=== PATIENT | female | born 1980 | race Caucasian/White ===

== ENCOUNTER 2018-05-09 11:21 | Emergency (ER) | payer BC, SELFPAY ==
[2018-05-09 11:22] VITALS: BP 125/84; PULSE 94; RESP 16; TEMP 36.3; O2SAT 95; BMI 45.3
[2018-05-09 13:12] VITALS: BP 127/93; PULSE 81; RESP 18; O2SAT 97
--- NOTE | 2018-05-09 13:40 | RAD_ITS ---
STUDY: X-RAY CHEST REASON FOR EXAM: Female, 37 years old. Chest palpitations. TECHNIQUE: Single AP portable view of the chest. COMPARISON: None. FINDINGS: EKG electrodes are seen. The lungs are clear and expanded. There is no demonstrated pleural abnormality. Normal size heart. Normal mediastinum and amol. Normal visualized pulmonary arteries. Normal visualized aortic arch and descending thoracic aorta. Normal visualized thoracic spine. Normal visualized ribs, clavicles, and shoulders. There is no demonstrated abnormality of the visualized soft tissue structures of the upper abdomen. RAD/Chest 1 View (Portable) IMPRESSION: Normal x-ray examination of the chest. Electronically Signed: Humberto Emerson MD at 14:12 EDT Tel [phone], Service support ,
--- NOTE | 2018-05-09 13:40 | EKG12_ITS ---
Test Reason : PALPS Blood Pressure : / mmHG Vent. Rate : 089 BPM Atrial Rate : 089 BPM P-R Int : 188 ms QRS Dur : 084 ms QT Int : 382 ms P-R-T Axes : 030 017 011 degrees QTc Int : 464 ms Normal sinus rhythm Normal ECG Confirmed by ROBERT CANCHOLA, BUZZ ([id number]), photography editor REJI ROMERO ([id number]) on 05/13/2018 2:41:10 PM Referred By: JAYCE/MARICRUZ Confirmed By:BUZZ JONES MD
[2018-05-09 13:42] VITALS: O2SAT 98
[2018-05-09 14:01] LABS: Absolute Lymphocyte Count 2.49 X10^3/ul (0.83-4.51); Basophil# 0.04 X10^3/uL; Basophil% 0.4 % (0-1); Eosinophil# 0.35 X10^3/uL; Eosinophils% 3.6 % (0-5); Hematocrit 40.3 % (37-47); Hemoglobin 13.6 g/dl (12.0-15.0); Lymphocyte # 2.49 X10^3/ul (4.0); Lymphocyte % 25.9 % (19-41); Mean Corp Hgb Conc 33.7 g/gl (32-36); Mean Platelet Vol. 10.3 fl (6.2-12.0); Monocyte# 0.71 X10^3/uL; Monocyte% 7.4 % (0-10); Neutrophil # 5.98 X10^3/uL (2.7-7.7); Neutrophil % 62.4 % (47-70); Platelet Count 268 K/mm3 (150-450); RBC Distribution Width CV 12.9 % (11.6-14.6); RBC Distribution Width SD 41.4 fl (35.1-43.9); Red Blood Count 4.53 M/mm3 (4.2-5.4); White Blood Count 9.6 K/mm3 (4.4-11.0)
[2018-05-09 14:09] LABS: Magnesium 2.2 mg/dL (1.6-2.6); POSITIVE COUNT NO; POSITIVE DIFFERENTIAL NO; POSITIVE MORPHOLOGY NO
[2018-05-09 14:12] LABS: Anion Gap 8 (5-15); BUN 14 mg/dL (7-18); BUN/Creat Ratio 18.7 RATIO (10-20); Calcium,Total 7.4 mg/dL (8.5-10.1); Chloride 102 mmol/L (98-107); Creatinine, Serum 0.75 mg/dL (0.55-1.02); EST Glomerular Filtration Rate 93 mL/min (>60); Est Glom Filt Rate - Afr Amer 112 mL/min (>60); Estimated Creatinine Clearance 88.68 ml/min; Glucose 74 mg/dL (74-106); Potassium 3.6 mmol/L (3.5-5.1); Sodium Level 138 mmol/L (136-145)
[2018-05-09 14:23] VITALS: BP 119/85; PULSE 86; RESP 22; O2SAT 96
--- NOTE | 2018-05-09 15:15 | ED.VISSUMM ---
- ER Visit Summary Date of Service: 05/09/18 Chief Complaint: Hypocalcemia History of Present Illness: The patient is a 37 F who has a history of thyroid cancer for which she received a thyroidectomy and a parathyroidectomy. Patient states she has a history of hypocalcemia. She states that today she was at work developed palpitations some chest pain. She notes some perioral paresthesias some twitching of her right eyelid and some muscle cramps in her legs and her back. She states that at the beginning of April her calcium level was 7.9. She has been hospitalized in the past for this. Physical Examination: Afebrile vital signs are stable Gen: Well-nourished well-developed Head: Normocephalic atraumatic Eyes: Perrl EOMI ENT: TMs clear no rhinorrhea moist mucous membranes Neck: Supple no lymphadenopathy no JVD nontender CVS: Regular rate rhythm no murmurs normal S1-S2 Respiratory: No distress clear to auscultation bilaterally chest nontender Abdomen: Soft nontender nondistended normal bowel sounds no masses Back: Nontender Extremity: Nontender no edema Skin: Normal color no rash Neuro: alert orientated ?3 CN II-XII intact normal strength sensation reflexes gait cerebellar Psych: Normal affect normal mood Test Results: CBC chemistry showed a calcium of 7.4 magnesium 2.2. EKG sinus at a rate of 89 it appears unchanged. Chest x-ray per protocol was negative. Emergency Department Course and Treatment: Patient received a gram of calcium chloride mixed by pharmacy and diluted and given through a AC vein. 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 Impression: 1. Hypocalcemia This note was generated with [employer] dictation software. It may contain incorrect words, spelling, and punctuation that were not noted in review of the chart prior to signing ED Disposition - Plan for ED Patient: Disposition: Home or Assisted Living Chief Complaint: Abn Labs Instructions: ED Hypocalcemia Referrals: Sonya Alcala NP-C [Nurse Practitioner] - (call to arrange follow up to have calcium levels rechecked early next week)
--- NOTE | 2018-05-09 15:19 | ED.DCSUM_ITS ---
- ER Visit Summary Date of Service: 05/09/18 Chief Complaint: Hypocalcemia History of Present Illness: The patient is a 37 F who has a history of thyroid cancer for which she received a thyroidectomy and a parathyroidectomy. Patient states she has a history of hypocalcemia. She states that today she was at work developed palpitations some chest pain. She notes some perioral paresthesias some twitching of her right eyelid and some muscle cramps in her legs and her back. She states that at the beginning of April her calcium level was 7.9. She has been hospitalized in the past for this. Physical Examination: Afebrile vital signs are stable Gen: Well-nourished well-developed Head: Normocephalic atraumatic Eyes: Perrl EOMI ENT: TMs clear no rhinorrhea moist mucous membranes Neck: Supple no lymphadenopathy no JVD nontender CVS: Regular rate rhythm no murmurs normal S1-S2 Respiratory: No distress clear to auscultation bilaterally chest nontender Abdomen: Soft nontender nondistended normal bowel sounds no masses Back: Nontender Extremity: Nontender no edema Skin: Normal color no rash Neuro: alert orientated ?3 CN II-XII intact normal strength sensation reflexes gait cerebellar Psych: Normal affect normal mood Test Results: CBC chemistry showed a calcium of 7.4 magnesium 2.2. EKG sinus at a rate of 89 it appears unchanged. Chest x-ray per protocol was negative. Emergency Department Course and Treatment: Patient received a gram of calcium chloride mixed by pharmacy and diluted and given through a AC vein. 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 Impression: 1. Hypocalcemia This note was generated with [employer] dictation software. It may contain incorrect words, spelling, and punctuation that were not noted in review of the chart prior to signing ED Disposition - Plan for ED Patient: Disposition: Home or Assisted Living Chief Complaint: Abn Labs Instructions: ED Hypocalcemia Referrals: Sonya Alcala NP-C [Nurse Practitioner] - (call to arrange follow up to have calcium levels rechecked early next week)
[2018-05-09 15:35] VITALS: BP 125/81; PULSE 86; RESP 25; O2SAT 97
[2018-05-09 16:29] VITALS: BP 123/83; PULSE 85; RESP 19; O2SAT 97
== END 2018-05-09 16:39 | disposition home or self-care (01) ==
PROVIDERS: Emergency Provider Emergency Medicine; Family Provider Family Medicine; PCP Family Medicine
DX: E83.51 Hypocalcemia (principal); Z85.850 Personal history of malignant neoplasm of thyroid
CPT/HCPCS: 71045; 80048; 83735; 84484; 85025; 93005; 99284; J7050; A4216

== ENCOUNTER → 2018-10-17 09:25 | Outpatient (CLI) | payer BC, SELFPAY ==
[2018-10-17 08:47] VITALS: BMI 42.5
[2018-10-17 10:30] LABS: Free T3 6.5 pg/mL (2.18-3.98); T4 Free Direct 0.97 ng/dL (0.76-1.46); Thyroid Stim Hormone (TSH) 0.72 uIU/mL (0.358-3.74)
[2018-10-17 12:15] LABS: BUN 18 mg/dL (7-18); Creatinine, Serum 0.84 mg/dL (0.55-1.02); EST Glomerular Filtration Rate 81 mL/min (>60); Glucose 82 mg/dL (74-106)
[2018-10-17 12:16] LABS: ALB/GLOB Ratio 0.8 RATIO (0.9-2.4); AST(SGOT) 12 U/L (15-37); Alanine Aminotransfer ALT/SGPT 19 U/L (13-56); Albumin, Serum 3.2 g/dL (3.2-5.0); Alkaline Phosphatase 43 U/L (45-117); Anion Gap 10 (5-15); BUN/Creat Ratio 21.5 RATIO (10-20); Calcium,Total 8.7 mg/dL (8.5-10.1); Chloride 107 mmol/L (98-107); Est Glom Filt Rate - Afr Amer 98 mL/min (>60); Globulin 3.9 g/dL (2.2-4.2); Potassium 3.7 mmol/L (3.5-5.1); Protein, Total 7.1 g/dL (6.4-8.2); Sodium Level 142 mmol/L (136-145)
[2018-10-17 12:20] LABS: Vitamin D,25 Hydroxy 48.5 ng/mL (29.95-100.01)
[2018-10-21 11:18] LABS: Anti-Thyroglobulin AB < 1.0 IU/mL (0.0-0.9); Thyroglobulin, Serum Qt. < 0.1 ng/mL (1.5-38.5)
--- OUTSIDE RECORDS SUMMARY | 2018-12-03 03:02 | XMS RPT_ITS ---
:1980 Author Organization [place] Support Name Relationship Address Phone MACARIO PAGAN Unavailable [address] + [place] [address] [facility] Unavailable [address] + [place] [address] MYRA MACARIO Unavailable [address] + [place] [address] [facility] Unavailable [address] + [place] [address] MYRA MACARIO Unavailable [address] + [place] [address] [facility] Unavailable [address] + [place] [address] MYRA MACARIO Unavailable [address] + [place] [address] [facility] Unavailable [address] + [place] [address] [facility]available [address] + [place] [address] MYRA MACARIO Unavailable [address] + [place] [address] [facility] Unavailable [address] + [place] [address] Justine Booth Unavailable Unavailable + [place] [address] MYRA MACARIO Unavailable [address] + [place] [address] [facility] Unavailable [address] +. [place] [address] BECKY LUGO Unavailable Unavailable + MYRA MACARIO Unavailable [address] + [place] [address] [facility] Unavailable [address] +. [place] [address] Alex Lugo Unavailable [address] [place] [address] [address] [phone] [place] [address] MACARIO PAGAN Unavailable [address] + [place] [address] NOT GIVEN Unavailable [address] [place] Unavailable [place], [place] MYRA MACARIO Unavailable [address] + [place] [address] [facility] Unavailable [address] +. [place] [address] EVIN VELAZQUEZ Unavailable [address] + [place] [address] Care Team Providers Name Role Phone JENNIFER FREGOSO (SIZE CUTTER) Attending Unavailable TANVIR LANCASTER Referring Unavailable JENNIFER FREGOSO (SIZE CUTTER) Referring Unavailable JENNIFER FREGOSO (SIZE CUTTER) Attending Unavailable JENNIFER FREGOSO (SIZE CUTTER) Referring Unavailable JENNIFER FREGOSO (SIZE CUTTER) Referring Unavailable HIMA POP ([facility]) Attending Unavailable JENNIFER FREGOSO (SIZE CUTTER) Referring Unavailable Dr. Rob Granger Admitting Unavailable Dr. Rob Granger Attending Unavailable Sonya Alcala ARMY RANGER-C Attending Unavailable Sonya Alcala ARMY RANGER-C Referring Unavailable Alistair Wilson Primary Care Unavailable Sonya Alcala ARMY RANGER-C Attending Unavailable Sonya Alcala ARMY RANGER-Poncho Referring Unavailable Steve, Alistair Primary Care Unavailable Fermin Thomas Attending Unavailable Steve Alistair Referring Unavailable Fermin Thomas Attending Unavailable Steve Alistair Referring Unavailable Fermin Thomas Attending Unavailable William Fermin Referring Unavailable Steve, Alistair Primary Care Unavailable Laz Thomasel Attending Unavailable Steve, Alistair Referring Unavailable Fermin Sheffield Attending Unavailable Steve, Alistair Primary Care Unavailable Sonya Alcala ARMY RANGER-C Attending Unavailable Steve Alistair Referring Unavailable PROBLEMS PROBLEMS DATE TYPE CONDITION / CODE ATTENDING STATUS SOURCE 11/13/2018 Unknown N63.0 - Unspecified Fermin Thomas Active [place] lump in unspecified Community breast / Hospital N63.0(ICD-10) Repository 10/17/2018 Unknown E03.9 - Daniel Alcaladominick Smart Active [facility] Hypothyroidism, [facility] RANGER-C [facility] unspecified / Hospital E03.9(ICD-10) Repository 06/26/2018 Active Unspecified lump in NA Active [facility] unspecified breast / Clinic Main N63.0(ICD-10) [place] Repository 07/11/2016 Active Postprocedural NA Active [facility] hypothyroidism / Clinic Main E89.0(ICD-10) [facility] Repository 04/10/2018 Active Motion sickness, NA Active [facility] initial encounter / Clinic Main T75.3XXA(ICD-10) [facility] Repository PROCEDURES PROCEDURES No Procedure Records FoundRESULTS RESULTS SURGERY VISIT REPORT Observed: 11/20/2018 Status: F Source: [place] 1:27 PM [facility] REPOSIT[facility] [address] [place] [address]. [address] [place] [address] OFFICE VISIT Date of Service: 11/20/18 MR#: [id number] Acct: [id number] Name: MERLE PAGAN Rep #: [id number] : 1980 Provider: Fermin Thomas MD Age/Sex: 37/F Location: [facility] Status: Signed Intake Vital Signs11/20/18 Body Mass Index (BMI) 42.5 Intake Visit Reasons: 1 WK F/U L NC Breast BX Chief Complaint: post breast biopsy Roving Weight Gauger Required: No Is patient in pain?: No Allergies levofloxacin [From Levaquin] Allergy (Verified 11/20/18 12:58) Hives Penicillins [PCN] Allergy (Verified 11/20/18 12:58) Hives Medications Calcium Carbonate [Calcium] 1,800 mg PO DAILY 05/09/18 [History Confirmed 11/13/18] thyroid (pork) 240 mg tablet 240 mg PO DAILY #90 tab 10/17/18 [Rx Confirmed 11/13/18] calcitriol 0.25 mcg capsule 0.5 mcg PO BID cap 10/24/18 [History Confirmed 11/13/18] Is last menstrual period known: No Post menopausal: No Patient : No PFSH Medical History Asthma (Acute) Hypoparathyroidism (Acute) Low calcium levels (Acute) Seasonal allergies (Acute) Thyroid cancer (Acute) Thyroid disease (Acute) Chronic headaches (Chronic) Surgical History H/O total thyroidectomy (Acute) H/O: hysterectomy (Acute) History of tubal ligation (Acute) Hx of cholecystectomy (Acute) NEWELL (Acute) removal of lipoma (Acute) Family History Unknown Hypertension Heart disease Arthritis Grandmother Arthritis High cholesterol Thyroid disorder Grandfather Arthritis Diabetes Heart disease Hypertension Kidney disease Uncle Colon cancer Social History Smoking Status: Former smoker second hand exposure: No alcohol intake: current alcohol intake frequency: a few times a month substance use type: does not use HPI HPI HPI: MERLE PAGAN, is a 37 F who presents to the office today for for an ultrasound-guided left breast biopsy which was completed in the office on 11/13/2018. This came back as fragments of benign breast tissue with no pathologic diagnosis. She is not complaining of any pain she has not noticed any bruising. Exam Skin Other: Biopsy site is clean without signs of infection and there is no bruising identified side Assessment AND Plan Problems 1. Breast lump N63.0 Plan She can follow-up on an as-needed basis. She should continue to do her self breast exams 5 days after her menstrual cycle in the shower. If she notices anything abnormal she should contact my office at once. Coding Level of Care Code Off vis,est,level 2 Diagnoses Breast lump N63.0 11/20/18 1327 <Electronically signed by Fermin Thomas MD> Date Fermin hTomas MD Cosigner Signature: Date (if applicable) CC: Alistair Wilson MD PROGRESS Observed: 11/20/2018 Status: COMPLETED Source: [place] 11:22 AM [facility] HNO ID: [id number] Author: Juju Lerma) Chuck Service: (none) Author Type: Physician Behavioral Health Therapist Type: Progress Notes Filed: 11/20/2018 11:35 AM Note Text: Subjective HPI Patient presents with redness and swelling to the bridge of her nose over the past 4 days. She states this started to spread across her nose to her face so she came in for evaluation. She had no injury or trauma to her face. She did have a breast abscess in the past but she's not sure what bacteria caused it. No fever or chills. She is not diabetic. She is not had facial cellulitis in the past. Review of Systems HENT: Redness of the bridge of the nose All other systems reviewed and are negative. 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 - First degree AV block 02/08/2011 doesn't see jigger operator, no medication - Hypocalcemia 01/12/2011 - Hypoparathyroidism (HCC) - Hypoparathyroidism (HCC) 01/12/2011 - Hypothyroidism 01/12/2011 - Menorrhagia - Nausea alone - POTS (postural orthostatic tachycardia syndrome) - Status post radioactive iodine thyroid ablation - Syncope 01/12/2011 - Thyroid cancer (HCC) 1999 papillary Current Outpatient Prescriptions: ARMOUR THYROID 240 mg tab TAKE 1 TABLET DAILY Disp: 90 tablet Rfl: 0 calcitriol (ROCALTROL) 0.5 mcg capsule TAKE 2 CAPSULES ONCE DAILY Disp: 180 capsule Rfl: 2 albuterol HFA (VENTOLIN HFA) 90 mcg/actuation inhaler Inhale 2 Puffs as instructed every 6 hours as needed. Disp: 3 Inhaler Rfl: 3 Calcium-Cholecalciferol, D3, (CALCIUM 600 + D) 600-125 mg- unit ORAL Tab Take 1,200 mg by mouth once daily. Takes 2400mg daily Disp: Rfl: 0 cephALEXin (KEFLEX) 500 mg capsule Take 1 capsule by mouth three times daily for 10 days. Disp: 30 capsule Rfl: 0 nystatin (MYCOSTATIN) cream Apply 1 application to affected area twice daily. (Patient not taking: Reported on 08/15/2018 ) Disp: 30 g Rfl: 1 ARMOUR THYROID 15 mg tablet Take 1 tablet by mouth once daily. Take in addition to 240 mg dose for total daily dose of 255 mg. (Patient not taking: Reported on 11/20/2018 ) Disp: 90 tablet Rfl: 1 scopolamine (TRANSDERM-SCOP) 1 mg over 3 days Apply 1 Patch as directed every 72 hours. Apply patch to skin behind ear 4hrs prior to travel. (Patient not taking: Reported on 08/15/2018 ) Disp: 10 Patch Rfl: 1 mupirocin (BACTROBAN) 2 % ointment Apply 1 application to affected area three times daily. (Patient not taking: Reported on 08/15/2018 ) Disp: 22 g Rfl: 0 No current facility-administered medications for this visit. 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 Objective Physical Exam Constitutional: She is oriented to person, place, and time and well-developed, well-nourished, and in no distress. HENT: Head: Normocephalic and atraumatic. Right Ear: External ear normal. Left Ear: External ear normal. Nose: Patient has redness and mild swelling to the upper bridge of the nose extending to the right side of the face underneath of the eye. No eye involvement. No lymphogenic streaking. Mild warmth to palpation. No crusting or lesions. Cardiovascular: Normal rate, regular rhythm and normal heart sounds. Pulmonary/Chest: Effort normal and breath sounds normal. Neurological: She is alert and oriented to person, place, and time. Nursing note and vitals reviewed. ASSESSMENT/PLAN: 1. Facial cellulitis - ICD9: 682.0, ICD10: L03.211 - Begin treatment with Cephalaxin (Keflex) - No lymphangetic streaking, this was defined for patient to watch for and to seek medical care immediately if appears - Discussed with patient concerning symptoms to go to the emergency department or follow up here. Pt agreeable with this plan. Juju Marley PA-C CNOV Observed: 11/20/2018 Status: COMPLETED Source: [place] 10:30 AM [facility] REPOSITORY Office Visit ([facility]) MERLE PAGAN ([id number]) 1980 F Date Time Provider Department 11/20/18 10:30 AM JUJU MARLEY ([place]) [facility] During your visit today, we recorded the following information about you: Temperature Pulse Respiration Blood pressure 98.1 degrees 72/minute 16/minute 118/78 Weight 115 kg Juju Marley PA-C 11/20/2018 11:35 AM Signed Subjective HPI Patient presents with redness and swelling to the bridge of her nose over the past 4 days. She states this started to spread across her nose to her face so she came in for evaluation. She had no injury or trauma to her face. She did have a breast abscess in the past but she's not sure what bacteria caused it. No fever or chills. She is not diabetic. She is not had facial cellulitis in the past. Review of Systems HENT: Redness of the bridge of the nose All other systems reviewed and are negative. 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 - First degree AV block 02/08/2011 doesn't see jigger operator, no medication - Hypocalcemia 01/12/2011 - Hypoparathyroidism (HCC) - Hypoparathyroidism (HCC) 01/12/2011 - Hypothyroidism 01/12/2011 - Menorrhagia - Nausea alone - POTS (postural orthostatic tachycardia syndrome) - Status post radioactive iodine thyroid ablation - Syncope 01/12/2011 - Thyroid cancer (HCC) 1999 papillary Current Outpatient Prescriptions: ARMOUR THYROID 240 mg tab TAKE 1 TABLET DAILY Disp: 90 tablet Rfl: 0 calcitriol (ROCALTROL) 0.5 mcg capsule TAKE 2 CAPSULES ONCE DAILY Disp: 180 capsule Rfl: 2 albuterol HFA (VENTOLIN HFA) 90 mcg/actuation inhaler Inhale 2 Puffs as instructed every 6 hours as needed. Disp: 3 Inhaler Rfl: 3 Calcium-Cholecalciferol, D3, (CALCIUM 600 + D) 600-125 mg- unit ORAL Tab Take 1,200 mg by mouth once daily. Takes 2400mg daily Disp: Rfl: 0 cephALEXin (KEFLEX) 500 mg capsule Take 1 capsule by mouth three times daily for 10 days. Disp: 30 capsule Rfl: 0 nystatin (MYCOSTATIN) cream Apply 1 application to affected area twice daily. (Patient not taking: Reported on 08/15/2018 ) Disp: 30 g Rfl: 1 ARMOUR THYROID 15 mg tablet Take 1 tablet by mouth once daily. Take in addition to 240 mg dose for total daily dose of 255 mg. (Patient not taking: Reported on 11/20/2018 ) Disp: 90 tablet Rfl: 1 scopolamine (TRANSDERM-SCOP) 1 mg over 3 days Apply 1 Patch as directed every 72 hours. Apply patch to skin behind ear 4hrs prior to travel. (Patient not taking: Reported on 08/15/2018 ) Disp: 10 Patch Rfl: 1 mupirocin (BACTROBAN) 2 % ointment Apply 1 application to affected area three times daily. (Patient not taking: Reported on 08/15/2018 ) Disp: 22 g Rfl: 0 No current facility-administered medications for this visit. 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 Objective Physical Exam Constitutional: She is oriented to person, place, and time and well-developed, well-nourished, and in no distress. HENT: Head: Normocephalic and atraumatic. Right Ear: External ear normal. Left Ear: External ear normal. Nose: Patient has redness and mild swelling to the upper bridge of the nose extending to the right side of the face underneath of the eye. No eye involvement. No lymphogenic streaking. Mild warmth to palpation. No crusting or lesions. Cardiovascular: Normal rate, regular rhythm and normal heart sounds. Pulmonary/Chest: Effort normal and breath sounds normal. Neurological: She is alert and oriented to person, place, and time. Nursing note and vitals reviewed. ASSESSMENT/PLAN: 1. Facial cellulitis - ICD9: 682.0, ICD10: L03.211 - Begin treatment with Cephalaxin (Keflex) - No lymphangetic streaking, this was defined for patient to watch for and to seek medical care immediately if appears - Discussed with patient concerning symptoms to go to the emergency department or follow up here. Pt agreeable with this plan. Juju Marley PA-C Referring Provider: SELF [200] Allergies As of Date: 11/20/2018 Noted Allergy Reaction LEVAQUIN (LEVOFLOXACIN) 04/12/2012 2 - Rash 7 - Swelling Comments: lips PENICILLINS 06/13/2010 4 - Hives Comments: As a child Date Reviewed: 11/20/2018 Reviewed by: Archana Rubi LPN - Fully Assessed Reason for Visit: bridge of nose swollen and painful [Other] Cmt: x 4 days- no trauma to nose Primary Visit Diagnosis:Facial cellulitis [L03.211] Order(s):cephALEXin (KEFLEX) 500 mg capsuleTake 1 capsule by mouth three times daily for 10 days.Disp: 30 capsuleRfl: 0 Prescriptions as of 11/20/2018 Sig: ARMOUR THYROID 240 MG TABLET TAKE 1 TABLET DAILY CALCITRIOL 0.5 MCG CAPSULE TAKE 2 CAPSULES ONCE DAILY ALBUTEROL SULFATE HFA 90 MCG/* Inhale 2 Puffs as instructed * * CALCIUM CARBONATE-VITAMIN D3 * Take 1,200 mg by mouth once d* CEPHALEXIN 500 MG CAPSULE Take 1 capsule by mouth three* NYSTATIN 100,000 UNIT/GRAM TO* Apply 1 application to affect* Patient not taking: Reported on 08/15/2018 ARMOUR THYROID 15 MG TABLET Take 1 tablet by mouth once d* Patient not taking: Reported on 11/20/2018 SCOPOLAMINE 1 MG OVER 3 DAYS * Apply 1 Patch as directed morgan* Patient not taking: Reported on 08/15/2018 MUPIROCIN 2 % TOPICAL OINTMENT Apply 1 application to affect* Patient not taking: Reported on 08/15/2018 Problem List As Of Date 11/20/2018 Noted Resolved Post-surgical hypothyroidism [E89.0] INVALID FOR* Hypocalcemia [E83.51] INVALID FOR* Hypoparathyroidism [E20.9] INVALID FOR* Syncope [R55] INVALID FOR* Dao's lung [J67.0] INVALID FOR* Dizziness and giddiness [R42] INVALID FOR* First degree atrioventricular block [I44.0] INVALID FOR* Staring spell [NBS2541] INVALID FOR* Palpitations [R00.2] INVALID FOR* Nausea [R11.0] INVALID FOR* Sweating [JEI5084] INVALID FOR* Papillary thyroid carcinoma (HCC) [C73] INVALID FOR* Orthostatic hypotension [I95.1] INVALID FOR* First degree AV block [I44.0] INVALID FOR* Hypothyroid [E03.9] INVALID FOR* Nausea alone [R11.0] INVALID FOR* Esophagitis, unspecified [K20.9] INVALID FOR* Acute gastritis without mention of hemorrhage [*INVALID FOR* Hyperlipidemia [E78.5] INVALID FOR* Biliary dyskinesia [K82.8] INVALID FOR* Chest pain on breathing [R07.1] INVALID FOR* Malignant neoplasm of thyroid gland [C73] INVALID FOR* Menometrorrhagia [N92.1] INVALID FOR* Adenomyosis [N80.0] INVALID FOR* Cervical stenosis (uterine cervix) [N88.2] INVALID FOR* Hematuria [R31.9] INVALID FOR* S/P thyroidectomy [Z98.890] INVALID FOR* Breast abscess [N61.1] INVALID FOR* Morbid (severe) obesity due to excess calories *INVALID FOR* Prescriptions ordered this encounter Disp Refills Start End CEPHALEXIN 500 MG CAPSULE 30 c* 0 11/20/2018 11/30/2018 Route: ORAL Sig: Take 1 capsule by mouth three times daily for 10 days. Encounter Status:Closed by JUJU MARLEY PA-C on 11/20/18 SURGERY VISIT REPORT Observed: 11/18/2018 Status: F Source: [place] 12:30 PM [facility] [place] [facility] [address] [place] [address] OFFICE VISIT Date of Service: 11/13/18 MR#: [id number] Acct: [id number] Name: MERLE PAGAN Rep #: [id number] : 1980 Provider: Fermin Thomas MD Age/Sex: 37/F Location: [facility] Status: Signed Intake Intake Visit Reasons: Lt Breast NC Bx Roving Weight Gauger Required: No Is patient in pain?: No Allergies levofloxacin [From Levaquin] Allergy (Verified 11/13/18 14:08) Hives Penicillins [PCN] Allergy (Verified 11/13/18 14:08) Hives Medications Calcium Carbonate [Calcium] 1,800 mg PO DAILY 05/09/18 [History Confirmed 11/13/18] thyroid (pork) 240 mg tablet 240 mg PO DAILY #90 tab 10/17/18 [Rx Confirmed 11/13/18] calcitriol 0.25 mcg capsule 0.5 mcg PO BID cap 10/24/18 [History Confirmed 11/13/18] PFSH Medical History Asthma (Acute) Hypoparathyroidism (Acute) Low calcium levels (Acute) Seasonal allergies (Acute) Thyroid cancer (Acute) Thyroid disease (Acute) Chronic headaches (Chronic) Surgical History H/O total thyroidectomy (Acute) H/O: hysterectomy (Acute) History of tubal ligation (Acute) Hx of cholecystectomy (Acute) NEWELL (Acute) removal of lipoma (Acute) Family History Unknown Hypertension Heart disease Arthritis Grandmother Arthritis High cholesterol Thyroid disorder Grandfather Arthritis Diabetes Heart disease Hypertension Kidney disease Uncle Colon cancer Social History Smoking Status: Former smoker second hand exposure: No alcohol intake: current alcohol intake frequency: a few times a month substance use type: does not use HPI HPI HPI: MERLE PAGAN, is a 37 F who presents to the office today for Office Procedures Biopsy Provider Documentation Preoperative diagnosis left breast mass Postoperative diagnosis: The same Procedure: Ultrasound-guided needle core biopsy left breast mass Surgeon: William Procedure: Palpation of the upper outer quadrant of her breast revealed the nodular area. I ultrasounded it looks like nodular breast tissue I clean the breast with Betadine. I injected 1% lidocaine plain. I made a skin thomas. I used ultrasound to do one needle core biopsy and then I did 3 other needle core biopsies of the nodular area. Sterile dressings were applied. Patient tolerated the procedure well Alert Fund Manager Yes Biopsy Breast Biopsy: 56255 US Guidance Procedure Time Out Time Out Informed consent given: Yes Consent signed: Yes Time out checklist: patient, procedure, site marked/identified, positioning of patient, supplies available, allergies confirmed, team agrees on procedure Time out staff in room: Yes Time out verified: Yes Time out date: 11/13/18 Time out time: 13:45 Assessment AND Plan Orders Orders: Coding Level of Care Code Attention Sakina Additional Codes Biopsy - Breast Biopsy: 71993 US Guidance (75979) 11/18/18 1230 <Electronically signed by Fermin Thomas MD> Date Fermin Fullerignshauna Signature: Date (if applicable) CC: BREAST BIOPSY Observed: 11/13/2018 Status: F Source: [place] (CHOOSE S[place]) 1:55 PM [facility] [place] Patient: MERLE PAGAN : 1980 (37/F) Acct Num: [id number] Phys: William CANCHOLA,Fermin Unit Num: [id number] Loc: [facility] Specimen: [id number] Received: 11/13/18 - 5344 Spec Type: BREAST BX TISSUES 1 TISSUES: Left breast, NOS COMMENT Correlation with clinical, radiologic findings and appropriate follow up are necessary. If there is high suspicion of malignancy, rebiopsy is suggested if clinically indicated. GROSS DESCRIPTION Received is one container labeled with the patient's name and not further designated. The specimen consists of multiple elongated fragments of tomlin-yellow fibroadipose tissue that in aggregate measure 1.3 x 0.5 x 0.1 cm. The entire specimen is submitted in one cassette. / SJ:amy 11/13/18 TC:4 CPT: 53834 HEADER OPERATION: Ultrasound-guided needle core biopsy left breast PRE-OP DIAGNOSIS: Breast lump TISSUE SUBMITTED: Left breast biopsy ISCHEMIC TIME: <1 minute FIXATION TIME: 5.5 hours MICROSCOPIC DESCRIPTION Slides are reviewed. MICROSCOPIC DIAGNOSIS Left breast, ultrasound-guided needle core biopsy: Fragments of benign breast tissue, no pathologic diagnosis. See comment. SJ:amy 11/14/18 Signed Zackery Gama MD 11/14/18 <signature on file> Performed By: #### PBRBX #### [facility] [address] [place] [address]. [place], [place], [address] SURGERY VISIT REPORT Observed: 10/28/2018 Status: F Source: [place] 3:33 PM [facility] [address] [place] [address]. [address] [place] [address] OFFICE VISIT Date of Service: 10/24/18 MR#: [id number] Acct: [id number] Name: MERLE PAGAN Rep #: [id number] : 1980 Provider: Fermin Thomas MD Age/Sex: 37/F Location: [facility] Status: Signed Intake Vital Signs10/24/18 Body Mass Index (BMI) 42.5 10/24/18 Height 5 ft 4 in 10/24/18 Weight: 254 lb Intake Visit Reasons: L Breast Lump Mammo AND US 06/22 [facility] Roving Weight Gauger Required: No Is patient in pain?: No Allergies levofloxacin [From Levaquin] Allergy (Verified 10/24/18 14:33) Hives Penicillins [PCN] Allergy (Verified 10/24/18 14:33) Hives Medications Calcium Carbonate [Calcium] 1,800 mg PO DAILY 05/09/18 [History Confirmed 10/24/18] thyroid (pork) 240 mg tablet 240 mg PO DAILY #90 tab 10/17/18 [Rx Confirmed 10/24/18] calcitriol 0.25 mcg capsule 0.5 mcg PO BID cap 10/24/18 [History Confirmed 10/24/18] PFSH Medical History Asthma (Acute) Hypoparathyroidism (Acute) Low calcium levels (Acute) Seasonal allergies (Acute) Thyroid cancer (Acute) Thyroid disease (Acute) Chronic headaches (Chronic) Surgical History H/O total thyroidectomy (Acute) H/O: hysterectomy (Acute) History of tubal ligation (Acute) Hx of cholecystectomy (Acute) NEWELL (Acute) removal of lipoma (Acute) Family History Unknown Hypertension Heart disease Arthritis Grandmother Arthritis High cholesterol Thyroid disorder Grandfather Arthritis Diabetes Heart disease Hypertension Kidney disease Uncle Colon cancer Social History Smoking Status: Former smoker second hand exposure: No alcohol intake: current alcohol intake frequency: a few times a month substance use type: does not use HPI HPI HPI: MERLE PAGAN, is a 37 F who presents to the office today for palpable mass in her left breast. She has noticed this mass since April. She has had mammograms and ultrasounds which have been negative. The mass has not changed it has not gotten bigger. ROS General General: No weight change, appetite, fatigue, colon cancer, breast cancer or weakness HEENT HEENT: No difficulty swallowing, eye injury, eye surgery, swollen glands or hoarseness Endo Endocrine: Yes thyroid disease and thyroid cancer; no diabetes mellitus, Hair loss, heat intolerance or cold intolerance Skin Skin: No rash or changing moles Breast Breast: Yes left breast lump; no right breast lump, nipple discharge, breast pain, abnormal mammogram, abnormal US or breast enlargement Musc Musculoskeletal: No back problems, arthritis, rheumatoid arthritis, gout or joint pain Cardio Cardiovascular: No murmur, pacemaker, heart disease, atrial fibrillation, high blood pressure, heart attack, heart stent, palpitations, shortness of breat with exertion or chest pain Psych Psychiatric: No depression, anxiety or hearing voices Resp Respiratory: No shortness of breath, No sleep apnea, No cough, No COPD, Yes asthma, No emphysema, No wheezing Gastro Gastrointestinal: No abdominal pain, No nausea or vomiting, No diarrhea, No constipation, No blood in stool, No acid reflux, Yes hemorrhoids, No ulcers, Yes gallbladder problem, No black,tarry stools Rj Hematologic: No blood thinners, No blood disorders, No bleeding, No anemia, No blood clots Neuro Neurologic: No system reviewed and no additional complaints, except as docu, No as per HPI, No abnormal walking, No abnormal hearing, No abnormal movements, No abnormal speech, No behavioral changes, No burning sensations, No confusion, No seizure-like activity, No unsteadiness, No dizziness, No localized weakness, No frequent falls, No headache(s), No lack of coordination, No loss of vision, No memory loss, No numbness, No other visual disturbances, No radiating pain, No restless legs, No sensory deficit, No fainting, No tingling, No tremor(s), No weakness, No other Exam HENMT Head: normal to inspection, normocephalic, atraumatic Mouth: moist mucous membranes, oropharynx normal Eyes General: appearance normal, both eyes and all related structures Sclera: sclerae normal Neck Neck: no lymphadenopathy noted, trachea midline Neck mass: No Thyroid: thyroid normal Lymphatic: no lymphadenopathy noted Chest Breast inspection: normal inspection of the breasts Breast Palpation: No nipple discharge Other: Patient has a palpable mass in the upper outer quadrant of her left breast. It is easily reducible there is no mass located in the right side of her breast. It is definable even if the ultrasound cannot see it I can clearly feel it. Axillary exam is negative bilaterally Supraclavicular exam is negative bilateral Resp Other: Respiratory Exam: Deferred Cardio Heart Sounds: no murmurs Other: Cardiac Exam: Deferred GI Other: GI Exam: Deferred Other: Rectal Exam: Deferred Extrem Other: Extremity Exam: Deferred Assessment AND Plan Problems 1. Breast lump N63.0 Plan I have discussed above with the patient. I have recommended ultrasound guided needle core breast biopsy I have described the procedure to the patient. I have discussed with the patient that sometimes the ultrasound lesion may be artifact and is user dependent and therefore prior to undergoing the procedure, the patient will have a definitive US to ensure that the lesion is truly present and is not artifact. A marker clip will be placed to identify the location. Patient has been counseled to the risks/benefits of the procedure. I have explained the risks of the surgery, including but not limited to: infection, bleeding, injury to any blood vessels/nerves, scar tissue, missing the lesion, further surgery, etc. - the patient understands and agrees to proceed. I have answered all of the patient's questions to her satisfaction and she has no further questions. Coding Level of Care Code Off vis,new,level 3 Diagnoses Breast lump N63.0 10/28/18 1533 <Electronically signed by Fermin Thomas MD> Date Fermin Thomas MD Cosigner Signature: Date (if applicable) CC: Alistair Wilson MD THYROID Observed: 10/24/2018 Status: F Source: [place] 8:18 AM [facility] [place] Imaging Services [address] [place] [address] Thyroid MR#: [id number] Acct: [id number] Name: MERLE PAGAN Rep #: [id number] : 1980 F 37 From: Kamari Sotelo MD PCP: Alistair Wilson MD Status: REG CLI Study: Thyroid Date of Exam: 10/24/18 Exam# [id number] Ordering Dr: Sonya Alcala [employer] STUDY: THYROID ULTRASOUND REASON FOR EXAM: Female, 37 years old. Acquired hypothyroidism. Thyroidectomy. TECHNIQUE: Ultrasound evaluation of the thyroid was performed with real-time and static oh-scale imaging. COMPARISON: None. FINDINGS: The thyroid gland is surgically absent. Lateral to the right thyroidectomy bed, possible lymph node. Somewhat ill-defined features. Greatest dimension approximately 2.35 x 0.59 cm. Lateral to the left thyroidectomy bed there are 2 lymph nodes, measuring approximately 1.2 x 0.3 cm, and 1.6 x 0.6 cm. Homogeneous cortices. Normal fatty hilum. Not pathologically enlarged. US/Thyroid IMPRESSION: Small lymph nodes are present lateral to the thyroidectomy beds bilaterally. Based on short axis dimensions and morphology, these are not pathologic enlarged and do not exhibit focally suspicious features. There is no apparent residual thyroid tissue in the thyroidectomy bed. There is no evidence of mass in the thyroidectomy bed. Electronically Signed: Kamari Sotelo MD at 12:11 EST Tel , Service support , CC: Sonya Alcala NP; Alistair Wilson MD Whip Operator: Signed OFFICE VISIT REPORT Observed: 10/20/2018 Status: F Source: [place] 7:[address] [place] [address] OFFICE VISIT Date of Service: 10/17/18 MR#: [id number] Acct: [id number] Patient: MERLE PAGAN Rep #: [id number] : 1980 Provider: Sonya Alcala NP Age/Sex: 37/F [place] [facility] [place]: Signed Intake Vital Signs10/17/18 Height 5 ft 5 in 10/17/18 Weight: 256 lb 10/17/18 Body Mass Index (BMI) 42.5 10/17/18 Blood Pressure 121/86 H 10/17/18 Blood Pressure Location Lt popliteal 10/17/18 Blood Pressure Position Sitting Intake Visit Reasons: 1 Y FU Roving Weight Gauger Required: No Accompanied by: Self Allergies levofloxacin [From Levaquin] Allergy (Verified 10/17/18 08:45) Hives Penicillins [PCN] Allergy (Verified 10/17/18 08:45) Hives Medications Calcium Carbonate [Calcium] 1,800 mg PO DAILY 05/09/18 [History Confirmed 10/14/18] calcitriol 0.25 mcg capsule 1 mcg PO BID cap 10/14/18 [History Confirmed 10/14/18] thyroid (pork) 240 mg tablet 240 mg PO DAILY #90 tab 10/17/18 [Rx] PFSH Medical History Asthma (Acute) Hypoparathyroidism (Acute) Low calcium levels (Acute) Seasonal allergies (Acute) Thyroid cancer (Acute) Thyroid disease (Acute) Chronic headaches (Chronic) Surgical History H/O total thyroidectomy (Acute) H/O: hysterectomy (Acute) Hx of cholecystectomy (Acute) NEWELL (Acute) removal of lipoma (Acute) Family History Unknown Hypertension Heart disease Arthritis Social History Smoking Status: Former smoker second hand exposure: No alcohol intake: current alcohol intake frequency: a few times a month substance use type: does not use HPI HPI Details: Merle Moody is a 37 year old female who present for follow up of hypoparathyroidism and history of thyroid cancer. Also has a known history of asthma, seasonal allergies, and headaches. Patient continues on armour 240mg daily as well as vitamin D and calcium for hypoparathyroidism. Reports feeling good. Offers no complaints. Severity, modifying factors, context, and associated signs and symptoms are as follows: Thyroid pain: No Energy: good Sleep: awakened refreshed Temp: No intolerance GI: Normal bowel Weight: Flucuates Eyes: No change in vision Memory: unchanged Diaphoresis: Not significant Skin: Dry Hair : Unchanged Neuro: No numbness, tingling or tremors Does report she has recently had lump found in breast. Mammogram completed as well as US. Patient reports she can feel the lump but the tests are not confirming what it is. Was suggested she RTC in 1 year. ROS Const Constitutional: No anorexia, body ache, chills, fever(s), frequent falls, decreased energy, malaise, night sweats, weakness, weight change, sleep problems, abnormal sleep pattern, change in appetite, other, headache(s), snoring, excessive sweating or fatigue Eyes Eyes: No blurry vision, change in vision, double vision, discharge, dry eyes, bulging eyes, floaters, visual disturbances, eye pain, light sensitivity, spots in vision, tunnel vision or other ENT ENT: No abnormal hearing, ear pain, ear discharge, ear pressure, hearing loss, tinnitus, dizziness/vertigo, balance problems, nosebleed/epistaxis, nasal congestion, nasal obstruction, nose pain, sinus pressure, sinus pain, nasal discharge, post nasal drip, headache(s), facial pain, dental pain, dry mouth, bad breath, hoarseness, lip swelling, mouth lesions, mouth pain, sore throat, tongue swelling, throat swelling, difficulty swallowing, neck pain or other Resp Respiratory: No cough, change in phlegm color, chest congestion, excessive phlegm production, hemoptysis, pain on inspiration, shortness of breath, pain with cough, snoring, stridor, wheezing or other Cardio Cardiology: No chest pain at rest, chest pain with exertion, leg pain with exertion, shortness of breath, dyspnea on exertion, generalized swelling, irregular heart rhythm, lightheadedness, orthopnea, radiating jaw, neck or arm pain, fast heart rate, slow heart rate, palpitations, other or excessive sweating Gastro GI: No abdominal pain, belching, bloating, change in bowel habits, change in stool character, coffee ground emesis, constipation, cramping, diarrhea, heartburn, difficulty swallowing, feeling full early, excessive flatus, incontinent of stools, Vomiting blood/hematemesis, blood in stool, loose stools, Black,tarry stools, nausea/dyspepsia, pain with swallowing, vomiting or other Genitourinary-Female: No difficulty urinating, burning urination, painful urination, urinary incontinence, urinary frequency, urinary urgency, urinary hesitancy, urinary retention, blood in urine, Frequent nighttime urination/ nocturia, post void dribbling, suprapubic fullness, side pain, sexual problems, genital lesions, genital itching, hot flashes, abnormal periods, abnormal vaginal bleeding, absent period, painful periods, light periods, heavy periods, difficulty getting , painful intercourse, pelvic pain, vaginal dryness, vaginal odor, Vaginal Itching or other Musc Musculoskeletal: No abnormal walking, joint pain, back pain, deformity, joint swelling, limited range of motion, loss of height, muscle cramps, muscle weakness, decreased muscle mass, body aches, neck pain, numbness, radiating pain into limb, stiffness, tingling or other Skin Skin: No acne, hair loss, change in hair, nail changes, boil, change in skin color, dry skin, redness, excessive hair growth, yellowing of the skin, lesions, itching, rash, skin pain, skin ulcer, sores, skin swelling, wounds or other Breast Breast: No other Neuro Neurology: No frequent falls, weakness, visual disturbances, abnormal hearing, headache(s), abnormal walking, numbness or tingling Psych Psychiatric: No abnormal sleep pattern, No change in appetite Endo Endocrine: No change in body appearance, cold intolerance, excessive sweating, fatigue, flushing, heat intolerance, increased thirst/drinking, increased hunger, increased urination or other Aller/Imm Allergy/Immunologic: No lip swelling, tongue swelling, throat swelling, wheezing or itchy eyes Exam Const General: healthy appearing, comfortable, well groomed Nutritional Appearance: well nourished Orientation: oriented x3 [facility] Head: normal to inspection, atraumatic Ears: hearing grossly normal bilaterally Nose: external nose normal Face and sinus: normal facial exam Mouth: oral mucosae normal, moist mucous membranes Teeth and gingiva: dentition normal Eyes General: appearance normal, both eyes and all related structures Eyelids: eyelids normal Conjunctivae: conjunctivae normal Sclera: sclerae normal Pupils: PERRL Neck Neck: normal visual inspection, full ROM Neck mass: No Resp Effort AND Inspection: normal respiratory effort, able to speak in complete sentences, symmetric chest movement Auscultation: Bilateral: Clear to Auscultation Cardio Rate: regular rate Rhythm: regular rhythm Heart Sounds: S1 normal, S2 normal, no murmurs GI Inspection: normal to inspection Auscultation: normal bowel sounds Palpation: soft, no guarding Musc Musculoskeletal: No muscle weakness Skin General: turgor normal Rashes: no rashes Wounds: no wounds Neuro General: oriented x3 Cognition: normal cognition Speech: speech normal Gait: normal gait Extrem General: no pedal edema, normal to inspection, normal capillary refill Psych Appearance: grossly normal Mental Status: mental status grossly normal Mood: congruent mood Affect: normal affect Speech and Movement: speech and movement normal Attitude: cooperative Thought Process: normal Thought Content: normal Judgment: judgment good Assessment AND Plan Problems 1. Hypothyroidism associated with surgical procedure E89.0 2. Hypoparathyroidism, unspecified hypoparathyroidism type E20.9 Plan Patient reports no s/s of hypocalcemia. Feels she is doing well with her armour dosage. Offers no complaints. No change in medication. Did have recent mammogram and breast US with nodule she can feel but is notwell defined(?) on tests. I have enc her to follow up with surgical consult. Labs as ordered. Orders Orders: Plan Detail Additional Comments 1. Please schedule follow up in 1 year 2. Lab work one week before appointment. 3. Discussed importance of regular exercise and recommend starting or continuing a regular exercise program for good health. Spent approximately 30 minutes with patient with over 50% of time spent in discussion and counseling regarding medication adjustment, symptoms and treatment of hypothyroidism and hypoparathyroidism Coding Level of Care Code Off vis,est,level 4 Diagnoses Hypothyroidism associated with surgical procedure E89.0 Hypoparathyroidism, unspecified hypoparathyroidism type E20.9 Hypoparathyroidism type: unspecified 10/20/181930 <Electronically signed by Sonya GREGORY> Date Sonya GREGORY Cosigner Signature: Date (if applicable) CC: COMPREHENSIVE METABOLIC Collected: 10/17/2018 Status: F Source: [place] 10:09 [place] [facility] [place] CODE TESTS RESULT OUT OF RANGE REFERENCE UNITS LAB L501.0100 74-106 mg/dL Normal GLU 82 Result Comment: Please note revised GLUCOSE reference range effective 2017. LAB L501.1000 7-18 mg/dL Normal BUN 18 LAB L501.1100 0.55-1.02 mg/dL Normal CREAT,SERUM 0.84 Result Comment: The validity of the calculated GFR AND GFRAA in patients over 70 years has not been determined. Clinical correlation is essential. LAB L501.1110 >60 mL/min Normal EST GFR 81 Result Comment: Non- GFR Calc LAB L501.1115 >60 mL/min Normal EST GFR - AA 98 Result Comment: GFR Calc LAB L501.1300 10-20 RATIO High BUN/CRE 21.5 LAB L501.1500 6.4-8.2 g/dL T Normal PROT 7.1 LAB L501.1800 3.2-5.0 g/dL Normal ALB 3.2 LAB L501.1950 2.2-4.2 g/dL Normal GLOB 3.9 LAB L501.2000 0.9-2.4 RATIO Low A/G 0.8 LAB L501.2200 8.5-10.1 mg/dL CA Normal 8.7 LAB L501.4100 15-37 U/L Low AST 12 LAB L501.4305 45-117 U/L Low ALK P 43 LAB L501.4405 13-56 U/L Normal ALT 19 LAB L501.4600 0.20-1.00 mg/dL T Normal BILI 0.60 LAB L501.5300 136-145 mmol/L NA Normal 142 LAB L501.5600 3.5-5.1 mmol/L K Normal 3.7 LAB L501.5900 98-107 mmol/L CL Normal 107 LAB L501.6100 21.0-32.0 mmol/L Normal CO2 25.0 LAB L501.6200 5-15 Normal GAP 10 Performed By: #### L500.4050 #### [facility] [place], [address] VITAMIN D,25 HYDROXY Collected: 10/17/2018 Status: F Source: [place] 10:09 AM [facility] TYPE CODE TESTS RESULT OUT OF RANGE REFERENCE UNITS LAB L506.1000 29.95-100.01 ng/mL Normal Vitamin D 48.5 25-OH Result Comment: Vitamin D 25(OH) Status Range Deficiency <20 ng/mL (50nmol/L) Insuffciency 20 - 30 ng/mL (50 - 75 nmol/L) Sufficiency 30 - 100 ng/mL (75 - 250 nmol/L) Toxicity >100 ng/mL (>250 nmol/L) Performed By: #### L506.1000 #### [facility] [address] [place], [place], [address] THYROGLOBULIN W/ANTI-TG Collected: 10/17/2018 Status: F Source: [place] 10:09 AM [facility] Order Comment: Reason for Laboratory Test annual screen TYPE CODE TESTS RESULT OUT OF RANGE REFERENCE UNITS LAB L3300.7025 0.0-0.9 IU/mL Normal ANTI-TG < 1.0 AB Result Comment: Thyroglobulin Antibody measured by [employer] [employer] LAB L3400.1030 1.5-38.5 ng/mL Low THYROGLOB < 0.1 Result Comment: According to the National Academy of Clinical Biochemistry, the reference interval for Thyroglobulin (TG) should be related to euthyroid patients and not for patients who underwent thyroidectomy. TG reference intervals for these patients depend on the residual mass of the thyroid tissue left after surgery. Establishing a post-operative baseline is recommended. The assay limit of quantitation is 0.1 ng/mL Thyroglobulin measured by [employer] [facility] Performed at: - [facility] [address] [id number] Word Processor Technician: Austin Reardon PhD, Phone: [phone] Performed By: #### L3300.6820 #### [facility]refer to [facility] for specific site) refer to report for address and phone number FREE T3 Collected: 10/17/2018 Status: F Source: [place] 9:35 AM [facility] [place] TYPE CODE TESTS RESULT OUT OF RANGE REFERENCE UNITS LAB L501.76886 2.18-3.98 pg/mL High FREE T3 6.5 Performed By: #### L501.40802, L501.9520, L506.0400 #### [facility] [address] [place], [address] THYROID STIM HORMONE Collected: 10/17/2018 Status: F Source: [place] (TSH) 9:35 AM [facility] [place] TYPE CODE TESTS RESULT OUT OF RANGE REFERENCE UNITS LAB L501.9520 0.358-3.74 uIU/mL Normal TSH 0.72 Performed By: #### L501.15833, L501.9520, L506.0400 #### [facility] [address] [place], [place], [address] T4 FREE DIRECT Collected: 10/17/2018 Status: F Source: [place] 9:35 AM [facility] [place] TYPE CODE TESTS RESULT OUT OF RANGE REFERENCE UNITS LAB L506.0400 0.76-1.46 ng/dL Normal T4 FREE 0.97 DIRECT Performed By: #### L501.55633, L501.9520, L506.0400 #### [facility] [address] [place], [address] SURGICAL PATHOLOGY Observed: 08/15/2018 Status: F Source: [place] 9:08 AM [facility] REPOSITORY Specimen originated from [facility] Specimen #: [id number] Submitting Physician: HIMA ARCE CNP FINAL DIAGNOSIS A. 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 WFB/GO/plj 08/19/2018 Vanna Morse M.D. (Electronic Signature) SPECIMEN SUBMITTED A: SKIN, LEFT FRONTAL SCALP, SHAVE BIOPSY CLINICAL DATA 3x3mm erythematous fleshy papule, IMP: irritated nevus GROSS DESCRIPTION A. Received in formalin is a 0.4 x 0.4 x 0.1 cm shave of skin. On the skin surface is a 0.4 cm, tomlin-yellow slightly elevated area. The specimen is bisected. Totally submitted in formalin in one cassette. Gross examination performed at [facility], [address] [place] [address] AB 08/16/2018 10:02:08 AM Date of Report: 08/19/2018 Date of Procedure: 08/15/2018 Date of Receipt: 08/15/2018 Submitted by: HIMA ARCE CNP Location: [facility] Diagnostic interpretation performed at [facility], [address] [place] [address]. CNOV Observed: 08/15/2018 Status: COMPLETED Source: [place] 9:00 AM [facility] REPOSITORY Office Visit (DERMST) MERLE PAGAN ([id number]) 1980 F Date Time Provider Department 08/15/18 9:00 AM [facility] ([facility]) [facility] During your visit today, we recorded the following information about you: Hima Pop APRN.CNP 08/15/2018 9:21 AM Signed Department of Dermatology Hima Pop APRN.CNP 08/15/2018 Last visit in Dermatology: Visit date not found Assessment/Plan (D48.5) Neoplasm of uncertain behavior of skin (primary encounter diagnosis) Comment: x1 Plan: Shave Procedure: I discussed treatment options with the patient. The risks of bleeding, infection, scarring, damage to underlying structures and potential need for future procedures discussed. The patient verbalized understanding and desires us to proceed. The area is identified, prepped in the usual fashion, anesthetized with local anesthesia and a sterile dermablade is used to obtain the partial thickness specimen. Hemostasis with direct pressure and/or direct electrocautery and the wound is closed as outlined above. Dressed with white petrolatum and a sterile dressing as needed. Wound care discussed. (L82.1) Seborrheic keratoses Comment: benign-appearing Plan: benign and observe (D18.01) Angioma of skin Comment: benign-appearing Plan: benign and observe (D22.9) Multiple benign nevi Comment: benign-appearing Plan: benign and observe The nature of sun-induced photo-aging and skin cancers is discussed. Sun avoidance, protective clothing, and the use of 30-SPF sunscreens is advised. Patient is instructed to perform regular self exams. Observe for changing, symptomatic, or new skin lesions and seek care with the patient's primary care provider or with dermatology if any lesions of concern are noted. Follow-up as noted below or as needed. Hima Pop APRN.SIZE CUTTER Chief Complaint: Patient presents with: Mole: left forehead Waist Up Skin Check Subjective and Objective HPI: Merle Pagan is a 37 year old female who presents for: Skin check. Desires: Waist-up exam only, declines complete cutaneous exam. History of skin cancer?: No Lesions of particular concern?: Lesion(s): mole Location(s): scalp Duration: A few months Symptoms: red, raised Severity: mild Inciting factors: no inciting factors Associated symptoms/previous treatments: none. Patient seen by PCP, and PCP was concerned so placed dermatology referral. 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 - First degree AV block 02/08/2011 doesn't see jigger operator, no medication - Hypocalcemia 01/12/2011 - Hypoparathyroidism (HCC) - Hypoparathyroidism (HCC) 01/12/2011 - Hypothyroidism 01/12/2011 - Menorrhagia - Nausea alone - POTS (postural orthostatic tachycardia syndrome) - Status post radioactive iodine thyroid ablation - Syncope 01/12/2011 - Thyroid cancer (HCC) 1999 papillary Social History Marital status: Spouse name: Macario Years of education: 12 Number of children: 0 Occupational History Occupation Employer Comment [employer]* Social History Main Topics Smoking status: Never Smoker Smokeless tobacco: Never Used Alcohol use: Yes Comment: occasional Drug use: No Sexual activity: Yes Partners with: Male control/protection: Tubal Ligation Social History Narrative She works as a car dispatcher. Current Outpatient Prescriptions on File Prior to Visit: ARMOUR THYROID 15 mg tablet Take 1 tablet by mouth once daily. Take in addition to 240 mg dose for total daily dose of 255 mg. ARMOUR THYROID 240 mg tab TAKE 1 TABLET DAILY calcitriol (ROCALTROL) 0.5 mcg capsule TAKE 2 CAPSULES ONCE DAILY albuterol HFA (VENTOLIN HFA) 90 mcg/actuation inhaler Inhale 2 Puffs as instructed every 6 hours as needed. Calcium-Cholecalciferol, D3, (CALCIUM 600 + D) 600-125 mg- unit ORAL Tab Take 1,200 mg by mouth once daily. Takes 2400mg daily nystatin (MYCOSTATIN) cream Apply 1 application to affected area twice daily. (Patient not taking: Reported on 08/15/2018 ) scopolamine (TRANSDERM-SCOP) 1 mg over 3 days Apply 1 Patch as directed every 72 hours. Apply patch to skin behind ear 4hrs prior to travel. (Patient not taking: Reported on 08/15/2018 ) mupirocin (BACTROBAN) 2 % ointment Apply 1 application to affected area three times daily. (Patient not taking: Reported on 08/15/2018 ) No current facility-administered medications on file prior to visit. ROS: General: Does the patient feel generally well? Yes Skin: Any other skin lesions of concern? No Any other ongoing rashes or itching? No Physical Exam: General: The patient appears generally well, non-toxic, and in no distress. Skin: The following areas were inspected and/or palpated and were unremarkable except as noted below: Scalp and hair; head (including the face and ears); neck; chest (including breasts and axillae); abdomen; back; right upper extremity; left upper extremity; as well as the apocrine and eccrine glands which were inspected. Eyes: Inspection of conjunctivae and lids revealed no tumors or injection. Ears, Nose, Mouth and Throat: Inspection of the lips was unremarkable. Cardiovascular: Examination of peripheral vascular system by observation and palpation demonstrated no edema, infarcts or tenderness and was otherwise unremarkable. Extremities: Inspection and palpation of digits and nails demonstrated no infarcts, clubbing or other lesions. Positive findings: 3x3mm erythematous fleshy papule, left frontal scalp Brown stuck on plaques to the bilateral inframammary Regular and symmetric hyperpigmented macules throughout Small haddad red papules throughout NICHOLAS Luna APRN.CNP 08/15/2018 9:08 AM Addendum +++++++++++++++++++++++++++++++++++++++ CARE FOR SURGICAL SITES WITHOUT SUTURES 1.) Keep the area clean and dry with the band-aid in place the day of surgery. 2.) The next day you may bathe or shower as usual. Do not wear a wet band-aid on the wound. 3.) Remove the band-aid daily. Wash gently with soap and water and pat dry. Apply vaseline and cover with a band-aid until healed. Usually this results in the most rapid healing. 4.) Some patients prefer to leave the wound open to the air. If you desire to do this, please apply a small amount of white petrolatum (Vaseline) to the area until completely healed. 5.) DO NOT USE NEOSPORIN OR BACITRACIN as there is a fairly high incidence of allergic response to these products. 6.) You may experience some mild discomfort, redness, swelling and a mild clear discharge from the wound after your procedure. Severe pain, worsening swelling and foul-smelling discharge from the wound are not to be expected. If you have concerns about how your wounds are healing, please call and ask for the Dermatology Nurses Station. 7.) After 4:30 p.m. or on weekends, you will be transferred to [id number] or the answering service for advice. Referring Provider: JENNIFER FREGOSO (AMINATA) [[id number]] Allergies As of Date: 08/15/2018 Noted Allergy Reaction LEVAQUIN (LEVOFLOXACIN) 04/12/2012 2 - Rash 7 - Swelling Comments: lips PENICILLINS 06/13/2010 4 - Hives Comments: As a child Date Reviewed: 08/15/2018 Reviewed by: Roslyn Jose Ma - Fully Assessed Reason for Visit: Mole [923] Cmt: left forehead Waist Up Skin Check [1446] Reason For Visit History Recorded Primary Visit Diagnosis:Neoplasm of uncertain behavior of skin [D48.5] Other Visit Diagnoses:Seborrheic keratoses [L82.1] Angioma of skin [D18.01] Multiple benign nevi [D22.9] Order(s):lidocaine-EPINEPHrine 1 %-1:100,000 12.5 mL buffered injectionDisp: Rfl: SURGICAL PATHOLOGY [[id number]] Order #: [id number] Prescriptions as of 08/15/2018 Sig: ARMOUR THYROID 15 MG TABLET Take 1 tablet by mouth once d* ARMOUR THYROID 240 MG TABLET TAKE 1 TABLET DAILY CALCITRIOL 0.5 MCG CAPSULE TAKE 2 CAPSULES ONCE DAILY ALBUTEROL SULFATE HFA 90 MCG/* Inhale 2 Puffs as instructed * * CALCIUM CARBONATE-VITAMIN D3 * Take 1,200 mg by mouth once d* NYSTATIN 100,000 UNIT/GRAM TO* Apply 1 application to affect* Patient not taking: Reported on 08/15/2018 SCOPOLAMINE 1 MG OVER 3 DAYS * Apply 1 Patch as directed morgan* Patient not taking: Reported on 08/15/2018 MUPIROCIN 2 % TOPICAL OINTMENT Apply 1 application to affect* Patient not taking: Reported on 08/15/2018 Problem List As Of Date 08/15/2018 Noted Resolved Post-surgical hypothyroidism [E89.0] INVALID FOR* Hypocalcemia [E83.51] INVALID FOR* Hypoparathyroidism [E20.9] INVALID FOR* Syncope [R55] INVALID FOR* Dao's lung [J67.0] INVALID FOR* Dizziness and giddiness [R42] INVALID FOR* First degree atrioventricular block [I44.0] INVALID FOR* Staring spell [[id number]] INVALID FOR* Palpitations [R00.2] INVALID FOR* Nausea [R11.0] INVALID FOR* Sweating [[id number]] INVALID FOR* Papillary thyroid carcinoma (HCC) [C73] INVALID FOR* Orthostatic hypotension [I95.1] INVALID FOR* First degree AV block [I44.0] INVALID FOR* Hypothyroid [E03.9] INVALID FOR* Nausea alone [R11.0] INVALID FOR* Esophagitis, unspecified [K20.9] INVALID FOR* Acute gastritis without mention of hemorrhage [*INVALID FOR* Hyperlipidemia [E78.5] INVALID FOR* Biliary dyskinesia [K82.8] INVALID FOR* Chest pain on breathing [R07.1] INVALID FOR* Malignant neoplasm of thyroid gland [C73] INVALID FOR* Menometrorrhagia [N92.1] INVALID FOR* Adenomyosis [N80.0] INVALID FOR* Cervical stenosis (uterine cervix) [N88.2] INVALID FOR* Hematuria [R31.9] INVALID FOR* S/P thyroidectomy [Z98.890] INVALID FOR* Breast abscess [N61.1] INVALID FOR* Morbid (severe) obesity due to excess calories *INVALID FOR* Other instructions from your clinician: +++++++++++++++++++++++++++++++++++++++ CARE FOR SURGICAL SITES WITHOUT SUTURES 1.) Keep the area clean and dry with the band-aid in place the day of surgery. 2.) The next day you may bathe or shower as usual. Do not wear a wet band-aid on the wound. 3.) Remove the band-aid daily. Wash gently with soap and water and pat dry. Apply vaseline and cover with a band-aid until healed. Usually this results in the most rapid healing. 4.) Some patients prefer to leave the wound open to the air. If you desire to do this, please apply a small amount of white petrolatum (Vaseline) to the area until completely healed. 5.) DO NOT USE NEOSPORIN OR BACITRACIN as there is a fairly high incidence of allergic response to these products. 6.) You may experience some mild discomfort, redness, swelling and a mild clear discharge from the wound after your procedure. Severe pain, worsening swelling and foul-smelling discharge from the wound are not to be expected. If you have concerns about how your wounds are healing, please call and ask for the Dermatology Nurses Station. 7.) After 4:30 p.m. or on weekends, you will be transferred to [facility] or the answering service for advice. Prescriptions ordered this encounter Disp Refills Start End LIDOCAINE-EPINEPHRINE 1 % (BUFFERED)* 08/15/2018 08/15/2018 Route: INTRADERM. Disposition: Return in about 1 year (around 08/15/2019) for Full body skin check. Follow-up and Disposition History Recorded Encounter Status:Closed by HIMA POP CNP on 08/15/18 PROGRESS Observed: 08/15/2018 Status: COMPLETED Source: [place] 8:44 AM [facility] REPOSITORY O ID: [id number] Author: Hima (Kelly Pop Service: (none) Author Type: Nurse Practitioner Type: Progress Notes Filed: 08/15/2018 9:21 AM Note Text: Department of Dermatology Hima Pop APRN.CNP 08/15/2018 Last visit in Dermatology: Visit date not found Assessment/Plan (D48.5) Neoplasm of uncertain behavior of skin (primary encounter diagnosis) Comment: x1 Plan: Shave Procedure: I discussed treatment options with the patient. The risks of bleeding, infection, scarring, damage to underlying structures and potential need for future procedures discussed. The patient verbalized understanding and desires us to proceed. The area is identified, prepped in the usual fashion, anesthetized with local anesthesia and a sterile dermablade is used to obtain the partial thickness specimen. Hemostasis with direct pressure and/or direct electrocautery and the wound is closed as outlined above. Dressed with white petrolatum and a sterile dressing as needed. Wound care discussed. (L82.1) Seborrheic keratoses Comment: benign-appearing Plan: benign and observe (D18.01) Angioma of skin Comment: benign-appearing Plan: benign and observe (D22.9) Multiple benign nevi Comment: benign-appearing Plan: benign and observe The nature of sun-induced photo-aging and skin cancers is discussed. Sun avoidance, protective clothing, and the use of 30-SPF sunscreens is advised. Patient is instructed to perform regular self exams. Observe for changing, symptomatic, or new skin lesions and seek care with the patient's primary care provider or with dermatology if any lesions of concern are noted. Follow-up as noted below or as needed. Hima Pop APRN.CNP Chief Complaint: Patient presents with: Mole: left forehead Waist Up Skin Check Subjective and Objective HPI: Merle Pagan is a 37 year old female who presents for: Skin check. Desires: Waist-up exam only, declines complete cutaneous exam. History of skin cancer?: No Lesions of particular concern?: Lesion(s): mole Location(s): scalp Duration: A few months Symptoms: red, raised Severity: mild Inciting factors: no inciting factors Associated symptoms/previous treatments: none. Patient seen by PCP, and PCP was concerned so placed dermatology referral. 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 - First degree AV block 02/08/2011 doesn't see jigger operator, no medication - Hypocalcemia 01/12/2011 - Hypoparathyroidism (HCC) - Hypoparathyroidism (HCC) 01/12/2011 - Hypothyroidism 01/12/2011 - Menorrhagia - Nausea alone - POTS (postural orthostatic tachycardia syndrome) - Status post radioactive iodine thyroid ablation - Syncope 01/12/2011 - Thyroid cancer ([facility]) 1998 papillary Social History Marital status: Spouse name: Fulton Years of education: 12 Number of children: 0 Occupational History Occupation Employer Comment [employer]* Social History Main Topics Smoking status: Never Smoker Smokeless tobacco: Never Used Alcohol use: Yes Comment: occasional Drug use: No Sexual activity: Yes Partners with: Male control/protection: Tubal Ligation Social History Narrative She works as a car dispatcher. Current Outpatient Prescriptions on File Prior to Visit: ARMOUR THYROID 15 mg tablet Take 1 tablet by mouth once daily. Take in addition to 240 mg dose for total daily dose of 255 mg. ARMOUR THYROID 240 mg tab TAKE 1 TABLET DAILY calcitriol (ROCALTROL) 0.5 mcg capsule TAKE 2 CAPSULES ONCE DAILY albuterol HFA (VENTOLIN HFA) 90 mcg/actuation inhaler Inhale 2 Puffs as instructed every 6 hours as needed. Calcium-Cholecalciferol, D3, (CALCIUM 600 + D) 600-125 mg- unit ORAL Tab Take 1,200 mg by mouth once daily. Takes 2400mg daily nystatin (MYCOSTATIN) cream Apply 1 application to affected area twice daily. (Patient not taking: Reported on 08/15/2018 ) scopolamine (TRANSDERM-SCOP) 1 mg over 3 days Apply 1 Patch as directed every 72 hours. Apply patch to skin behind ear 4hrs prior to travel. (Patient not taking: Reported on 08/15/2018 ) mupirocin (BACTROBAN) 2 % ointment Apply 1 application to affected area three times daily. (Patient not taking: Reported on 08/15/2018 ) No current facility-administered medications on file prior to visit. ROS: General: Does the patient feel generally well? Yes Skin: Any other skin lesions of concern? No Any other ongoing rashes or itching? No Physical Exam: General: The patient appears generally well, non-toxic, and in no distress. Skin: The following areas were inspected and/or palpated and were unremarkable except as noted below: Scalp and hair; head (including the face and ears); neck; chest (including breasts and axillae); abdomen; back; right upper extremity; left upper extremity; as well as the apocrine and eccrine glands which were inspected. Eyes: Inspection of conjunctivae and lids revealed no tumors or injection. Ears, Nose, Mouth and Throat: Inspection of the lips was unremarkable. Cardiovascular: Examination of peripheral vascular system by observation and palpation demonstrated no edema, infarcts or tenderness and was otherwise unremarkable. Extremities: Inspection and palpation of digits and nails demonstrated no infarcts, clubbing or other lesions. Positive findings: 3x3mm erythematous fleshy papule, left frontal scalp Brown stuck on plaques to the bilateral inframammary Regular and symmetric hyperpigmented macules throughout Small haddad red papules throughout Hima Pop APRN.SIZE CUTTER PROGRESS Observed: 06/26/2018 Status: COMPLETED Source: [place] 2:47 PM [facility] REPOSITORY HNO ID: [id number] Author: Sheryl Nguyen Rt Service: (none) Author Type: (none) Type: Progress Notes Filed: 06/26/2018 2:48 PM Note Text: Radiology Service Progress Note PATIENT NAME: Merle Pagan DATE OF SERVICE: June 26, 2018 TIME: 2:47 PM PATIENT IDENTITY VERIFICATION COMPLETED USING TWO (2) METHODS: Patient confirmed name verbally and Date of . PATIENT GENDER DATA: Female. status: : No status: NO. PATIENT RELEVANT IMPLANT DATA REVIEWED: Not Applicable RADIOLOGY DEPARTMENT: [facility] bilateral diagnostic mammogram PERIPHERAL IV DATA: Not applicable SIGNED BY: Sheryl Peralta June 26, 2018 2:47 PM PROGRESS Observed: 06/26/2018 Status: COMPLETED Source: [place] 9:12 AM [facility] REPOSITORY HNO ID: [id number] Author: Lisa Pandya Rdms Service: (none) Author Type: (none) Type: Progress Notes Filed: 06/26/2018 9:12 AM Note Text: Radiology Service Progress Note PATIENT NAME: Merle Pagan DATE OF SERVICE: June 26, 2018 TIME: 9:12 AM PATIENT IDENTITY VERIFICATION COMPLETED USING TWO (2) METHODS: Patient confirmed name verbally and Date of . PATIENT GENDER DATA: Female. status: : No status: NO. PATIENT RELEVANT IMPLANT DATA REVIEWED: Not Applicable RADIOLOGY DEPARTMENT: Ultrasound PERIPHERAL IV DATA: Not applicable SIGNED BY: Lisa Pandya Rdms June 26, 2018 9:12 AM [facility] Observed: 06/26/2018 Status: COMPLETED Source: [place] 9:09 AM [facility] REPOSITORY HNO ID: [id number] Author: Mammography Coordinator Service: (none) Author Type: Physician Type: Letter Filed: 06/27/2018 11:31 PM Note Text: June 26, 2018 PID: [id number] Merle Pagan [address] [place] [address] Dear Ms. Pagan, We are pleased to inform you that the results of your recent breast imaging exam on 06/26/2018 are normal and we recommend that you return to your annual screening Mammography schedule. Your mammogram demonstrates that you have dense breast tissue, which could hide abnormalities. Dense breast tissue, in and of itself, is a relatively common condition. Therefore, this information is not provided to cause undue concern; rather, it is to raise your awareness and promote discussion with your health care provider regarding the presence of dense breast tissue in addition to other risk factors. Early detection of cancer is very important. We also understand recommendations regarding breast cancer screening are controversial. Please discuss with your primary care provider which strategy is best for you and whether a mammogram is right for you. Your imaging studies and report will be kept on file at [facility] as part of your permanent medical record and are available for your continuing care. Thank you for allowing us to help in meeting your health care needs. Sincerely, Dr. Lange Interpreting Radiologist [facility] (Return to Annual Mammogram schedule) [facility]CO Observed: 06/26/2018 Status: COMPLETED Source: [place] 9:09 AM [facility] REPOSITORY HNO ID: [id number] Author: Mammography Coordinator Service: (none) Author Type: Physician Type: Letter Filed: 06/27/2018 11:31 PM Note Text: June 26, 2018 PID: [id number] Merle Pagan [address] [place] [address] Dear Ms. Pagan, We are pleased to inform you that the results of your recent breast imaging exam on 06/26/2018 are normal and we recommend that you return to your annual screening Mammography schedule. Your mammogram demonstrates that you have dense breast tissue, which could hide abnormalities. Dense breast tissue, in and of itself, is a relatively common condition. Therefore, this information is not provided to cause undue concern; rather, it is to raise your awareness and promote discussion with your health care provider regarding the presence of dense breast tissue in addition to other risk factors. Early detection of cancer is very important. We also understand recommendations regarding breast cancer screening are controversial. Please discuss with your primary care provider which strategy is best for you and whether a mammogram is right for you. Your imaging studies and report will be kept on file at [facility] as part of your permanent medical record and are available for your continuing care. Thank you for allowing us to help in meeting your health care needs. Sincerely, Dr. Lange Interpreting Radiologist [facility] (Return to Annual Mammogram schedule) [employer] BREAST [facility] Observed: 06/26/2018 Status: F Source: [facility] 8:50 AM [facility] REPOSITORY * * *Final Report* * * DATE OF EXAM: Jun 26 2018 8:50AM [place] 0593 - [facility] [employer] BREAST LTD LT / PROCEDURE REASON: Unspecified lump in unspecified breast * * * * Physician Interpretation * * * * #[id number] - [facility] DIAGNOSTIC MAHOGANY BILATERAL DIGITAL DIAGNOSTIC MAMMOGRAM WITH CAD: 06/26/2018 HISTORY: /Bilateral Diagnostic Mammogram /Palpable lump left breast. /Abnormal Mammogram /baseline mammogram. RESULT: TECHNIQUE: The study was acquired using full field digital technology and interpreted from soft copy. Current study was also evaluated with a Computer Aided Detection (CAD). No prior exams were available for comparison. The tissue of both breasts is extremely dense, which lowers the sensitivity of mammography. No significant masses, calcifications, or other findings are seen in either breast. NEGATIVE There are no abnormalities seen in the left breast to correspond with the palpable nodularities, however, clinical followup is recommended. There is no mammographic evidence of malignancy. #[id number] - [facility] [employer] [facility] ULTRASOUND OF LEFT BREAST: 06/26/2018 RESULT: No prior exams were available for comparison. Color flow and real-time ultrasound of the left breast were performed. IMPRESSION: NEGATIVE There is no sonographic evidence of malignancy. There are no abnormalities seen in the left breast to correspond with the palpable nodularities at 2 o'clock and in the axilla, however, clinical followup is recommended. A 3 year screening mammogram is recommended. Varun wilson/gurdeep:06/26/2018 09:09:35 [place] Roofer Helper: Sheryl MCNALLY)(Florian), [facility] letter sent: Return to Annual OVERALL STUDY BIRADS: 1 Negative Whip Operator: Gurdeep Transcribe Date/Time: Jun 26 2018 7:59A Dictated by : VARUN LANGE MD This examination was interpreted and the report reviewed and electronically signed by: VARUN LANGE MD on Jun 26 2018 9:09AM EST [id number] [facility] DIAGNOSTIC [facility] Observed: 06/26/2018 Status: F Source: [place] 8:25 AM [facility] REPOSITORY * * *Final Report* * * DATE OF EXAM: Jun 26 2018 8:25AM [facility] 0620 - [facility] DIAGNOSTIC MAHOGANY / PROCEDURE REASON: Unspecified lump in unspecified breast * * * * Physician Interpretation * * * * RESULT: #[id number] - [facility] DIAGNOSTIC [place]HOG[place] BILATERAL DIGITAL DIAGNOSTIC MAMMOGRAM WITH CAD: 06/26/2018 HISTORY: /Bilateral Diagnostic Mammogram /Palpable lump left breast. /Abnormal Mammogram /baseline mammogram. RESULT: TECHNIQUE: The study was acquired using full field digital technology and interpreted from soft copy. Current study was also evaluated with a Computer Aided Detection (CAD). No prior exams were available for comparison. The tissue of both breasts is extremely dense, which lowers the sensitivity of mammography. No significant masses, calcifications, or other findings are seen in either breast. NEGATIVE There are no abnormalities seen in the left breast to correspond with the palpable nodularities, however, clinical followup is recommended. There is no mammographic evidence of malignancy. #[id number] - [facility] US BREAST LTD LT ULTRASOUND OF LEFT BREAST: 06/26/2018 RESULT: No prior exams were available for comparison. Color flow and real-time ultrasound of the left breast were performed. IMPRESSION: NEGATIVE There is no sonographic evidence of malignancy. There are no abnormalities seen in the left breast to correspond with the palpable nodularities at 2 o'clock and in the axilla, however, clinical followup is recommended. A 3 year screening mammogram is recommended. Varun Lange M.D. tab/gurdeep:06/26/2018 09:09:35 [place] Roofer Helper: Sheryl MCNALLY)(Florian), [facility] letter sent: Return to Annual OVERALL STUDY BIRADS: 1 Negative Whip Operator: Gurdeep Transcribe Date/Time: Jun 26 2018 7:59A Dictated by: VARUN LANGE MD This examination was interpreted and the report reviewed and electronically signed by: VARUN LANGE MD on Jun 26 2018 9:09AM EST [id number] KNEE W/ONE OBLIQUE Observed: 06/24/2018 Status: F Source: [facility] 4:18 PM [facility] REPOSITORY Final Report Accession No: [id number] Performed: Jun 24 2018 4:18PM Examination: RIGHT KNEE W/ONE OBLIQUE EXAM TYPE: KNEE W/ONE OBLIQUE RIGHT EXAM DATE AND TIME: 06/24/2018 4:18 PM EDT INDICATION: 37-year-old female with knee pain. COMPARISON: None. TECHNIQUE: 4 views of the right knee. FINDINGS: No acute fracture. Joint alignment is anatomic. Joint spaces are preserved. No significant joint effusion. Soft tissues are within normal limits. IMPRESSION: No acute fracture or traumatic malalignment. Interpreting Physician: KRISTA CORREA D.O. Trans: dw : cc: PROGRESS Observed: 06/14/2018 Status: COMPLETED Source: [place] 9:02 AM [facility] REPOSITORY HNO ID: [id number] Author: Jennifer Wesley) [place] Service: (none) Author Type: Nurse Practitioner Type: Progress Notes Filed: 06/14/2018 9:46 AM Note Text: This is a 37 year old female who presents today with: Patient presents with: Recheck: lump in left breast X 1 month HISTORY OF PRESENT ILLNESS: Merle Pagan is a 37 year old female. Patient presents with: Recheck: lump in left breast X 1 month Pt presents today with a couple of complaints. Spot on forehead -- been there for 4 months. Doesn't seem to be changing -- just not going away. Sometimes will hit is when she is combing her hair. Refers lump in the left breast -- been there for a month. Refers wasn't concerned until her armpit started to swell. Refers hx of lumps in the breast which ended up being nothing. No family hx of breast cancer. No nipple discharge. Lump is painless. Lump is not growing. Hx of hyster WITHOUT ooph. Motion sickness is better. Refers that it lasted about 2 weeks. Thyroid Reports that she called IESHA Alcala. States that she is going to call in labs. 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 - First degree AV block 02/08/2011 doesn't see jigger operator, no medication - Hypocalcemia 01/12/2011 - Hypoparathyroidism (HCC) - Hypoparathyroidism (HCC) 01/12/2011 - Hypothyroidism 01/12/2011 - Menorrhagia - Nausea alone - POTS (postural orthostatic tachycardia syndrome) - Status post radioactive iodine thyroid ablation - Syncope 01/12/2011 - Thyroid cancer (HCC) 1999 papillary PAST SURGICAL HISTORY Procedure Laterality Date - EGD W/O BRSH SPECIMEN W/BX 08/14/11 - LAP CHOLECYSTECT/CHOLANGIOGRAPHY 04/08/12 failed IOC - LAP VAG HYST <=250 G RMV 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 Take in addition to 240 mg dose for total daily dose of 255 mg. scopolamine (TRANSDERM-SCOP) 1 mg over 3 days Apply 1 Patch as directed every 72 hours. Apply patch to skin behind ear 4hrs prior to travel. ARMOUR THYROID 240 mg tab TAKE 1 TABLET DAILY calcitriol (ROCALTROL) 0.5 mcg capsule TAKE 2 CAPSULES ONCE DAILY mupirocin (BACTROBAN) 2 % ointment Apply 1 application to affected area three times daily. albuterol HFA (VENTOLIN HFA) 90 mcg/actuation inhaler Inhale 2 Puffs as instructed every 6 hours as needed. Calcium-Cholecalciferol, D3, (CALCIUM 600 + D) 600-125 mg- unit ORAL Tab Take 1,200 mg by mouth once daily. Takes 2400mg daily No current facility-administered medications for this visit. FAMILY HISTORY Problem Relation Age of Onset - Thyroid Mother - Diabetes Maternal Grandfather - Hypertension Maternal Grandfather Social History Marital status: Spouse name: Fulton Years of education: 12 Number of children: 0 Occupational History Occupation Employer Comment DISPATCHER [employer]* Social History Main Topics Smoking status: Never Smoker Smokeless tobacco: Never Used Alcohol use: Yes Comment: occasional Drug use: No Sexual activity: Yes Partners with: Male control/protection: Tubal Ligation Social History Narrative She works as a car dispatcher. EXAM: BP 124/76 (BP Site: Right Arm, BP Position: Sitting, BP Cuff Size: Large Adult) Pulse 74 Wt 117 kg (258 lb) LMP 11/19/2012 BMI 41.96 kg/m? PHYSICAL EXAM: General Appearance: Well appearing, alert, in no acute distress, well-hydrated, well nourished.. Skin: 2-3mm pink/red papular area on the left forehead hairline. + red rash in the left axilla. Head: Normocephalic, no masses, lesions, tenderness or abnormalities. Eyes: Anicteric sclera. Extraocular movements are intact. . Breast: Inspection negative. No nipple discharge or bleeding. No palpable mass, No skin changes or dimpling and Positive findings: fibrocystic changes, nodule 2.5 cm, smooth, mobile, non-tender and well delineated from surrounding tissue located Left 3 o'clock. Neurologic: Gait normal. ASSESSMENT/PLAN: 1. Skin lesion - ICD9: 709.9, ICD10: L98.9 (primary diagnosis) Papular area on the left forehead hairline. No changes since first noticed. Becoming more problematic, as she is hitting it when she hennessy hair. - CONSULT TO DERMATOLOGY 2. Candidiasis, cutaneous - ICD9: 112.3, ICD10: B37.2 - NYSTATIN 100,000 UNIT/GRAM TOPICAL CREAM 3. Breast lump - ICD9: 611.72, ICD10: N63.0 Suspect fibrocystic in nature. - US BREAST LTD LT - VALERIE DIAGNOSTIC LT 4. Post-surgical hypothyroidism - ICD9: 244.0, ICD10: E89.0 She has been in touch with [facility]. Continue to follow per endocrinology. 5. Motion sickness, sequela - ICD9: 909.4, ICD10: T75.3XXS Resolved. Discussed treatment plan and patient voices understanding. Patient's questions answered appropriately. Medications and potential side effects were discussed and patient voices understanding. Return to the office as scheduled or as needed for worsening/no improvement. Jennifer Fregoso APRN.AMINATA CNOV Observed: 06/14/2018 Status: COMPLETED Source: [place] 9:00 AM [facility] REPOSITORY Office Visit (FAMPWS) MERLE PAGAN ([id number]) 1980 F Date Time Provider Department 06/14/18 9:00 AM JENNIFER FREGOSO (AMINATA) FAMPWS During your visit today, we recorded the following information about you: Pulse Blood pressure Weight 74/minute 124/76 117 kg Jennifer ALFREDITO Fregoso.AMINATA 06/14/2018 9:46 AM Signed This is a 37 year old female who presents today with: Patient presents with: Recheck: lump in left breast X 1 month HISTORY OF PRESENT ILLNESS: Merle Pagan is a 37 year old female. Patient presents with: Recheck: lump in left breast X 1 month Pt presents today with a couple of complaints. Spot on forehead -- been there for 4 months. Doesn't seem to be changing -- just not going away. Sometimes will hit is when she is combing her hair. Refers lump in the left breast -- been there for a month. Refers wasn't concerned until her armpit started to swell. Refers hx of lumps in the breast which ended up being nothing. No family hx of breast cancer. No nipple discharge. Lump is painless. Lump is not growing. Hx of hyster WITHOUT ooph. Motion sickness is better. Refers that it lasted about 2 weeks. Thyroid Reports that she called IESHA Alcala. States that she is going to call in labs. 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 - First degree AV block 02/08/2011 doesn't see jigger operator, no medication - Hypocalcemia 01/12/2011 - Hypoparathyroidism (HCC) - Hypoparathyroidism (HCC) 01/12/2011 - Hypothyroidism 01/12/2011 - Menorrhagia - Nausea alone - POTS (postural orthostatic tachycardia syndrome) - Status post radioactive iodine thyroid ablation - Syncope 01/12/2011 - Thyroid cancer (HCC) 1998 papillary PAST SURGICAL HISTORY Procedure Laterality Date - EGD W/O BRSH SPECIMEN W/BX 08/14/11 - LAP CHOLECYSTECT/CHOLANGIOGRAPHY 04/08/12 failed IOC - LAP VAG HYST <=250 G RMV 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 Take in addition to 240 mg dose for total daily dose of 255 mg. scopolamine (TRANSDERM-SCOP) 1 mg over 3 days Apply 1 Patch as directed every 72 hours. Apply patch to skin behind ear 4hrs prior to travel. ARMOUR THYROID 240 mg tab TAKE 1 TABLET DAILY calcitriol (ROCALTROL) 0.5 mcg capsule TAKE 2 CAPSULES ONCE DAILY mupirocin (BACTROBAN) 2 % ointment Apply 1 application to affected area three times daily. albuterol HFA (VENTOLIN HFA) 90 mcg/actuation inhaler Inhale 2 Puffs as instructed every 6 hours as needed. Calcium-Cholecalciferol, D3, (CALCIUM 600 + D) 600-125 mg- unit ORAL Tab Take 1,200 mg by mouth once daily. Takes 2400mg daily No current facility-administered medications for this visit. FAMILY HISTORY Problem Relation Age of Onset - Thyroid Mother - Diabetes Maternal Grandfather - Hypertension Maternal Grandfather Social History Marital status: Spouse name: Macario Years of education: 12 Number of children: 0 Occupational History Occupation Employer Comment DISPATCHER [employer]* Social History Main Topics Smoking status: Never Smoker Smokeless tobacco: Never Used Alcohol use: Yes Comment: occasional Drug use: No Sexual activity: Yes Partners with: Male control/protection: Tubal Ligation Social History Narrative She works as a car dispatcher. EXAM: BP 124/76 (BP Site: Right Arm, BP Position: Sitting, BP Cuff Size: Large Adult) Pulse 74 Wt 117 kg (258 lb) LMP 11/19/2012 BMI 41.96 kg/m? PHYSICAL EXAM: General Appearance: Well appearing, alert, in no acute distress, well-hydrated, well nourished.. Skin: 2-3mm pink/red papular area on the left forehead hairline. + red rash in the left axilla. Head: Normocephalic, no masses, lesions, tenderness or abnormalities. Eyes: Anicteric sclera. Extraocular movements are intact. . Breast: Inspection negative. No nipple discharge or bleeding. No palpable mass, No skin changes or dimpling and Positive findings: fibrocystic changes, nodule 2.5 cm, smooth, mobile, non-tender and well delineated from surrounding tissue located Left 3 o'clock. Neurologic: Gait normal. ASSESSMENT/PLAN: 1. Skin lesion - ICD9: 709.9, ICD10: L98.9 (primary diagnosis) Papular area on the left forehead hairline. No changes since first noticed. Becoming more problematic, as she is hitting it when she hennessy hair. - CONSULT TO DERMATOLOGY 2. Candidiasis, cutaneous - ICD9: 112.3, ICD10: B37.2 - NYSTATIN 100,000 UNIT/GRAM TOPICAL CREAM 3. Breast lump - ICD9: 611.72, ICD10: N63.0 Suspect fibrocystic in nature. - US BREAST LTD LT - [facility]NO[facility] LT 4. Post-surgical hypothyroidism - ICD9: 244.0, ICD10: E89.0 She has been in touch with [facility]. Continue to follow per endocrinology. 5. Motion sickness, sequela - ICD9: 909.4, ICD10: T75.3XXS Resolved. Discussed treatment plan and patient voices understanding. Patient's questions answered appropriately. Medications and potential side effects were discussed and patient voices understanding. Return to the office as scheduled or as needed for worsening/no improvement. Jennifer Fregoso APRN.AMINATA Fregoso APRN.CNP 06/14/2018 9:17 AM Signed 1. Get mammogram/ultrasound scheduled. 2. Derm referral. 3. Let us know if you need us to order repeat thyroid labwork. 4. appt to establish. Referring Provider: SELF [[id number]] Allergies As of Date: 06/14/2018 Noted Allergy Reaction LEVAQUIN (LEVOFLOXACIN) 04/12/2012 2 - Rash 7 - Swelling Comments: lips PENICILLINS 06/13/2010 4 - Hives Comments: As a child Date Reviewed: 06/14/2018 Reviewed by: Latisha Frost Car Sales Associate - Fully Assessed Reason for Visit: Recheck [92] Cmt: lump in left breast X 1 month Primary Visit Diagnosis:Skin lesion [L98.9] Other Visit Diagnoses:Candidiasis, cutaneous [B37.2] Breast lump [N63.0] Post-surgical hypothyroidism [E89.0] Motion sickness, sequela [T75.3XXS] Order(s):nystatin (MYCOSTATIN) creamApply 1 application to affected area twice daily.Disp: 30 gRfl: 1 CONSULT TO DERMATOLOGY [3094] Order #: [id number]: 1 US BREAST LTD LT [[id number]] Order #: [id number] FUTURE VALERIE DIAGNOSTIC LT [[id number]] Order #: [id number] FUTURE Prescriptions as of 06/14/2018 Sig: ARMOUR THYROID 15 MG TABLET Take 1 tablet by mouth once d* SCOPOLAMINE 1 MG OVER 3 DAYS * Apply 1 Patch as directed morgan* ARMOUR THYROID 240 MG TABLET TAKE 1 TABLET DAILY CALCITRIOL 0.5 MCG CAPSULE TAKE 2 CAPSULES ONCE DAILY MUPIROCIN 2 % TOPICAL OINTMENT Apply 1 application to affect* ALBUTEROL SULFATE HFA 90 MCG/* Inhale 2 Puffs as instructed * * CALCIUM CARBONATE-VITAMIN D3 * Take 1,200 mg by mouth once d* NYSTATIN 100,000 UNIT/GRAM TO* Apply 1 application to affect* Problem List As Of Date 06/14/2018 Noted Resolved Post-surgical hypothyroidism [E89.0] INVALID FOR* Hypocalcemia [E83.51] INVALID FOR* Hypoparathyroidism [E20.9] INVALID FOR* Syncope [R55] INVALID FOR* Dao's lung [J67.0] INVALID FOR* Dizziness and giddiness [R42] INVALID FOR* First degree atrioventricular block [I44.0] INVALID FOR* Staring spell [HNX3188] INVALID FOR* Palpitations [R00.2] INVALID FOR* Nausea [R11.0] INVALID FOR* Sweating [BNJ0306] INVALID FOR* Papillary thyroid carcinoma (HCC) [C73] INVALID FOR* Orthostatic hypotension [I95.1] INVALID FOR* First degree AV block [I44.0] INVALID FOR* Hypothyroid [E03.9] INVALID FOR* Nausea alone [R11.0] INVALID FOR* Esophagitis, unspecified [K20.9] INVALID FOR* Acute gastritis without mention of hemorrhage [*INVALID FOR* Hyperlipidemia [E78.5] INVALID FOR* Biliary dyskinesia [K82.8] INVALID FOR* Chest pain on breathing [R07.1] INVALID FOR* Malignant neoplasm of thyroid gland [C73] INVALID FOR* Menometrorrhagia [N92.1] INVALID FOR* Adenomyosis [N80.0] INVALID FOR* Cervical stenosis (uterine cervix) [N88.2] INVALID FOR* Hematuria [R31.9] INVALID FOR* S/P thyroidectomy [E89.0] INVALID FOR* Breast abscess [N61.1] INVALID FOR* Morbid (severe) obesity due to excess calories *INVALID FOR* Other instructions from your clinician: 1. Get mammogram/ultrasound scheduled. 2. Derm referral. 3. Let us know if you need us to order repeat thyroid labwork. 4. appt to establish. Prescriptions ordered this encounter Disp Refills Start End NYSTATIN 100,000 UNIT/GRAM TOPICAL C* 30 g 1 06/14/2018 Route: TOPICAL Sig: Apply 1 application to affected area twice daily. Follow-up and Disposition History Recorded Encounter Status:Closed by JENNIFER FREGOSO CNP on 06/14/18 EMERGENCY DEPARTMENT Observed: 05/14/2018 Status: F Source: [place] SUMMARY 4:43 PM [facility] [place] Medical Records Department [address] [facility] [place] [address] Emergency Department Summary 05/09/18 1515 MR#: [id number] Acct: [id number] Name: MERLE PAGAN Rep #: [id number] : 1980 37 From: Fermin Sheffield DO PCP: Alistair Wilson MD Status: DEP ER - ER Visit Summary Date of Service: 05/09/18 Chief Complaint: Hypocalcemia History of Present Illness: The patient is a 37 F who has a history of thyroid cancer for which she received a thyroidectomy and a parathyroidectomy. Patient states she has a history of hypocalcemia. She states that today she was at work developed palpitations some chest pain. She notes some perioral paresthesias some twitching of her right eyelid and some muscle cramps in her legs and her back. She states that at the beginning of April her calcium level was 7.9. She has been hospitalized in the past for this. Physical Examination: Afebrile vital signs are stable Gen: Well-nourished well-developed Head: Normocephalic atraumatic Eyes: Perrl EOMI ENT: TMs clear no rhinorrhea moist mucous membranes Neck: Supple no lymphadenopathy no JVD nontender CVS: Regular rate rhythm no murmurs normal S1-S2 Respiratory: No distress clear to auscultation bilaterally chest nontender Abdomen: Soft nontender nondistended normal bowel sounds no masses Back: Nontender Extremity: Nontender no edema Skin: Normal color no rash Neuro: alert orientated 3 CN II-XII intact normal strength sensation reflexes gait cerebellar Psych: Normal affect normal mood Test Results: CBC chemistry showed a calcium of 7.4 magnesium 2.2. EKG sinus at a rate of 89 it appears unchanged. Chest x-ray per protocol was negative. Emergency Department Course and Treatment: Patient received a gram of calcium chloride mixed by pharmacy and diluted and given through a AC vein. 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 Impression: 1. Hypocalcemia This note was generated with [employer] dictation software. It may contain incorrect words, spelling, and punctuation that were not noted in review of the chart prior to signing ED Disposition - Plan for ED Patient: Disposition: Home or Assisted Living Chief Complaint: Abn Labs Instructions: ED Hypocalcemia Referrals: Sonya Alcala, ARMY RANGER-C [Nurse Practitioner] - (call to arrange follow up to have calcium levels rechecked early next week) What to do if you have Problems For any increased pain, shortness of breath, bleeding, nausea or vomiting, chest pain, or any unexpected problems, contact your Primary Care Provider. Call [facility] ([phone]) or report to the closest Emergency Room. Call 911 if necessary. 05/14/18 1643 <Electronically signed by Fermin Sheffield DO> Date Fermin Sheffield DO Cosigner Signature (If Indicated): Date CC: Alistair Wilson MD 12 LEAD ELECTROCARDIOGRAM Observed: 05/13/2018 Status: F Source: [place] 2:41 PM [facility] [place] Cardiovascular Services [address] [place] [address] 12 Lead EKG 05/09/18 1127 MR#: [id number] Acct: [id number] Name: MERLE PAGAN Rep #: [id number] : 1980 37 From: Josue Gonzalez MD Attending Dr: Status: DEP ER Ordering Dr: Fermin Sheffield DO Date: 05/09/18 Location: ED Sex: F C Admitted: Test Reason : PALPS Blood Pressure : / mmHG Vent. Rate : 089 BPM Atrial Rate : 089 BPM P-R Int : 188 ms QRS Dur : 084 ms QT Int : 382 ms P-R-T Axes : 030 017 011 degrees QTc Int : 464 ms Normal sinus rhythm Normal ECG Confirmed by JOSUE GONZALEZ MD ([id number]), film editor supervisor REJI ROMERO ([id number]) on 05/13/2018 2:41:10 PM Referred By: JAYCE/MARICRUZ Confirmed By:JOSUE GONZALEZ MD 05/13/18 1441 Date Josue Gonzalez MD CC: Fermin Sheffield DO; Alistair Wilson MD Signed CHEST 1 VIEW Observed: 05/09/2018 Status: F Source: [place] (PORTABLE) 1:41 PM [facility] Imaging Services [address] [place] [id number] Chest 1 View (Portable) MR#: [id number] Acct: [id number] Name: MERLE PAGAN Rep #: [id number] : 1980 F 37 From: Humberto Emerson MD PCP: Alistair Wilson MD Status: PRE ER Study: Chest 1 View (Portable) Date of Exam: 05/09/18 Exam# [id number] Ordering Dr: Fermin Sheffield DO STUDY: X-RAY CHEST REASON FOR EXAM: Female, 37 years old. Chest palpitations. TECHNIQUE: Single AP portable view of the chest. COMPARISON: None. FINDINGS: EKG electrodes are seen. The lungs are clear and expanded. There is no demonstrated pleural abnormality. Normal size heart. Normal mediastinum and amol. Normal visualized pulmonary arteries. Normal visualized aortic arch and descending thoracic aorta. Normal visualized thoracic spine. Normal visualized ribs, clavicles, and shoulders. There is no demonstrated abnormality of the visualized soft tissue structures of the upper abdomen. RAD/Chest 1 View (Portable) IMPRESSION: Normal x-ray examination of the chest. Electronically Signed: Humberto Emerson MD at 14:12 EDT Tel [phone], Service support , CC: Fermin Wilson MD Whip Operator: Signed CBC W/DIFF, AUTOMATED Collected: 05/09/2018 Status: F Source: [place] 1:30 PM [facility] [place] TYPE CODE TESTS RESULT OUT OF RANGE REFERENCE UNITS LAB L100.1000 4.4-11.0 K/mm3 Normal WBC 9.6 LAB L100.1200 4.2-5.4 M/mm3 Normal RBC 4.53 LAB L100.1300 12.0-15.0 g/dl Normal HGB 13.6 LAB L100.1400 37-47 % Normal HCT 40.3 LAB L100.1500 81-99 fL Normal MCV 89.0 LAB L100.1600 27.0-32.0 pg Normal MCH 30.0 LAB L100.1700 32-36 g/gl Normal MCHC 33.7 LAB L100.1810 11.6-14.6 % Normal RDW CV 12.9 LAB L100.1820 35.1-43.9 fl Normal RDW SD 41.4 LAB L100.1900 150-450 K/mm3 Normal PLT 268 LAB L100.2000 6.2-12.0 fl Normal MPV 10.3 LAB L100.2100 47-70 % Normal NEUT% 62.4 LAB L100.2200 19-41 % Normal LY% 25.9 LAB L100.2300 0-10 % Normal MONO% 7.4 LAB L100.2400 0-5 % Normal EO% 3.6 LAB L100.2500 0-1 % Normal BASO% 0.4 LAB L100.2550 0.0-0.9 % Normal IM GRAN % 0.300 Result Comment: IG% - Immature Granulocytes (promyelocytes, myelocytes and metamyelocytes) > 1% indicates that a LEFT SHIFT is Present. LAB L100.2620 2.0-7.7 X10 3/uL Normal Absolute Neut 6.0 LAB L100.2720 0.83-4.51 X10 3/ul Normal Absolute Lymph 2.49 Performed By: #### L100.0100 #### [facility] [address] [place], [address] MAGNESIUM Collected: 05/09/2018 Status: F Source: [place] 1:30 PM [facility] [place] TYPE CODE TESTS RESULT OUT OF RANGE REFERENCE UNITS LAB L501.5200 1.6-2.6 mg/dL Normal MG 2.2 Performed By: #### L501.5200 #### [facility] [address] [place], [address] BASIC METABOLIC Collected: 05/09/2018 Status: F Source: [place] PROFILE (BMP) 1:30 PM [facility] [place] TYPE CODE TESTS RESULT OUT OF RANGE REFERENCE UNITS LAB L501.0100 74-106 mg/dL Normal GLU 74 Result Comment: Please note revised GLUCOSE reference range effective 2017. LAB L501.1000 7-18 mg/dL Normal BUN 14 LAB L501.1100 0.55-1.02 mg/dL Normal CREAT,SERUM 0.75 Result Comment: The validity of the calculated GFR AND GFRAA in patients over 70 years has not been determined. Clinical correlation is essential. LAB L501.1110 >60 mL/min Normal EST GFR 93 Result Comment: Non- GFR Calc LAB L501.1115 >60 mL/min Normal EST GFR - AA 112 Result Comment: GFR Calc LAB L501.1255 ml/min Normal Estimated CRCL 88.68 LAB L501.1300 10-20 RATIO Normal BUN/CRE 18.7 LAB L501.2200 8.5-10 mg/dL Low .1 CA 7.4 LAB L501.5300 136-14 mmol/L Normal 5 NA 138 LAB L501.5600 3.5-5. mmol/L Normal 1 K 3.6 LAB L501.5900 98-107 mmol/L Normal CL 102 LAB L501.6100 21.0-3 mmol/L Normal 2.0 CO2 28.0 LAB L501.6200 5-15 Normal GAP 8 Performed By: #### L500.2500, L501.4010 #### [facility] [address] [place], [place], [address] TROPONIN-I Collected: 05/09/2018 Status: F Source: [place] 1:30 PM [facility] [place] TYPE CODE TESTS RESULT OUT OF RANGE REFERENCE UNITS LAB L501.4010 <0.045 ng/mL Normal < 0.015 TROPONIN-I Result Comment: TROPONIN-I EXPECTED VALUES <0.045 Negative 0.045 - 0.590 Consistent with Cardiac Damage > OR = 0.600 Critical Value Not every elevated troponin is indicative of NV. These values should be used with clinical judgement in examining the patient's clinical picture for diagnosis. To establish a diagnosis of NV versus myocardial injury, there must be a demonstrated rise and/or fall in the troponin values, in addition to ischemic symptoms, EKG changes, new regional wall motion abnormality, and/or angiographical evidence. PLEASE NOTE: REFERENCE RANGES EDITED 18 Performed By: #### L500.2500, L501.4010 #### [facility] [address] [place], [place], [id number] CBC Collected: 04/10/2018 Status: F Source: [place] 8:57 AM [facility] REPOSITORY TYPE CODE TESTS RESULT OUT OF REFERENCE UNITS RANGE LAB WBC 3.70-11.00 k/uL WBC 9.97 LAB RBC 3.90-5.20 m/uL RBC 4.40 LAB HGB 11.5-15.5 g/dL Hemoglobin 13.2 LAB HCT 36.0-46.0 % Hematocrit 40.7 LAB MCV 80.0-100.0 fL MCV 92.5 LAB MCH 26.0-34.0 pG MCH 30.0 LAB MCHC 30.5-36.0 g/dL MCHC 32.4 LAB RDWCV 11.5-15.0 % RDW-CV 13.2 LAB PLTCT 150-400 k/uL Platelet Count 276 LAB MPV 9.0-12.7 fL MPV 10.7 LAB ABSNUC <0.01 k/uL Absolute nRBC <0.01 Performed By: #### CBC, CMP #### [facility] [address] [place], [place] [address] COMP METABOLIC PANEL Collected: 04/10/2018 Status: F Source: [place] 8:57 AM [facility] REPOSITORY TYPE CODE TESTS RESULT OUT OF REFERENCE UNITS RANGE LAB TP 6.3-8.0 g/dL Protein, Total 7.3 LAB ALB 3.9-4.9 g/dL Albumin 4.2 LAB CA 8.5-10.2 mg/dL Low Calcium, Total 7.9 LAB TBIL 0.2-1.3 mg/dL Bilirubin, Total 0.4 LAB ALKP 32-117 U/L Alkaline Phosphatase 35 LAB AST 13-35 U/L AST 21 LAB GLU 74-99 mg/dL Glucose 75 Result Comment: The [place] [employer] (ADA) provides guidance for cutoff values for fasting glucose and random glucose. The ADA defines fasting as no caloric intake for at least 8 hours. Fas ting plasma glucose results between 100 to 125 mg/dL indicate increased risk for diabetes (prediabetes). Fasting plasma glucose results greater than or equal to 126 mg/dL meet the criteria for diagnosis of diabetes. In the absence of unequivocal hyperglycemia, results should be confirmed by repeat testing. In a patient with classic symptoms of hyperglycemia or hyperglycemic crisis, random plasma glucose results greater than or equal to 200 mg/dL meet the criteria for diagnosis of diabetes. Reference: Standards of Medical Care in Diabetes 2016, [place] [employer]. Diabetes Care. 2016.39(Suppl 1). LAB BUN 7-21 mg/dL BUN 15 LAB CRET 0.58-0.96 mg/dL Creatinine 0.82 LAB NA 136-144 mmol/L Sodium 139 LAB K 3.7-5.1 mmol/L Potassium 4.0 LAB CL 97-105 mmol/L Chloride 99 LAB CO2 22-30 mmol/L CO2 26 LAB AGAP 9-18 mmol/L Anion Gap 14 LAB ALT 7-38 U/L ALT 14 LAB GFRAA eGFR- Amer. >60 LAB GFRNAA . eGFR-All Other Races >60 Result Comment: eGFR (Estimated GFR) Units of measure: mL/min/1.73 meters squared eGFR is derived from the reexpressed MDRD Study equation using the following parameters: serum creatinine, age, gender and race. The creatinine assay has been calibrated to be traceable to IDMS. An eGFR <60 mL/min/1.73m2 for >3 months is consistent with chronic kidney disease. Refer to KDOQI guidelines for clinical interpretation. In patients with unstable renal function, e.g. those with acute kidney injury, the eGFR may not accurately reflect actual GFR. Performed By: #### CBC, CMP #### [facility] [address] [address] TSH Collected: 04/10/2018 Status: F Source: [place] 8:57 AM [facility] REPOSITORY TYPE CODE TESTS RESULT OUT OF RANGE REFERENCE UNITS LAB TSH 0.400-5.500 uU/mL High TSH 19.940 Result Comment: If the patient is , TSH reference range varies by gestational period: First Trimester 0.100-2.500 uU/mL Second Trimester 0.200-3.000 uU/mL Third Trimester 0.300-3.000 uU/mL References: 1. Cisneros L, France M, Coleman EK, et al. Management of Thyroid Dysfunction during and : An Endocrine Society Clinical Practice Guideline. J Clin Endocrinol Metab, 2012:97:7841-7588. 2. Ramin MC. Overview of thyroid disease in . UpToDate. 2016. Accessed on April 21, 2016. Performed By: #### TSH, FT4 #### [facility] [address] [address] FREE T4 Collected: 04/10/2018 Status: F Source: [place] 8:57 AM [facility] REPOSITORY TYPE CODE TESTS RESULT OUT OF RANGE REFERENCE UNITS LAB FT4 0.9-1.7 ng/dL Low Free T4 0.8 Performed By: #### TSH, FT4 #### [facility] [address] [address] T3 Collected: 04/10/2018 Status: F Source: [facility] 8:57 AM [facility] REPOSITORY TYPE CODE TESTS RESULT OUT OF RANGE REFERENCE UNITS LAB T3 79-165 ng/dL High T3 330 Performed By: #### T3 #### [facility] [address] [place], [place] [address] PROGRESS Observed: 04/10/2018 Status: COMPLETED Source: [place] 8:19 AM [facility] REPOSITORY HNO ID: [id number] Author: Jennifer Fregoso Service: (none) Author Type: Nurse Practitioner Type: Progress Notes Filed: 04/10/2018 9:01 AM Note Text: This is a 37 year old female who presents today with: Patient presents with: motion sickness HISTORY OF PRESENT ILLNESS: Merle Pagan is a 37 year old female. Patient presents with: motion sickness Pt presents today with a new onset of motion sickness. Refers that she had a head cold about a month ago. During the headcold, she started getting car sickness. Refers that this has been progressive worsening. Getting car sick even when she is driving. 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 Getting car sick at work and off work. (not just on the back of an ambulance). Refers when they get back to the station, it takes a little bit until she is not woozy anymore. Refers that she never had a problem with car sickness before. + nausea + dizziness/wooziness. + diaphoresis. Tried dramamine, sea sickness bands, chewing gum -- nothing seems to help. No possibility of d/t Hysterectomy. REVIEW OF SYSTEMS GENERAL: No fevers/chills HEENT: Negative for frequent or significant headaches, No changes in hearing or vision. RESPIRATORY: Negative for cough, hemoptysis, wheezing, dyspnea or shortness of breath. Clear nasal drainage in the mornings. No facial pain. No ear pain. CARDIOVASCULAR: Negative for chest pain or palpitations GI: + nausea. No vomiting. 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 - First degree AV block 02/08/2011 doesn't see jigger operator, no medication - Hypocalcemia 01/12/2011 - Hypoparathyroidism (HCC) - Hypoparathyroidism (HCC) 01/12/2011 - Hypothyroidism 01/12/2011 - Menorrhagia - Nausea alone - POTS (postural orthostatic tachycardia syndrome) - Status post radioactive iodine thyroid ablation - Syncope 01/12/2011 - Thyroid cancer (HCC) 1999 papillary PAST SURGICAL HISTORY Procedure Laterality Date - EGD W/O BRSH SPECIMEN W/BX 08/14/11 - LAP CHOLECYSTECT/CHOLANGIOGRAPHY 04/08/12 failed IOC - LAP VAG HYST <=250 G RMV 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 albuterol HFA (VENTOLIN HFA) 90 mcg/actuation inhaler Inhale 2 Puffs as instructed every 6 hours as needed. Calcium-Cholecalciferol, D3, (CALCIUM 600 + D) 600-125 mg- unit ORAL Tab Take 1,200 mg by mouth once daily. Takes 2400mg daily No current facility-administered medications for this visit. FAMILY HISTORY Problem Relation Age of Onset - Thyroid Mother - Diabetes Maternal Grandfather - Hypertension Maternal Grandfather Social History Marital status: Spouse name: Macario Years of education: 12 Number of children: 0 Occupational History Occupation Employer Comment DISPATCHER [employer]* Social History Main Topics Smoking status: Never Smoker Smokeless tobacco: Never Used Alcohol use: Yes Comment: occasional Drug use: No Sexual activity: Yes Partners with: Male control/protection: Tubal Ligation Social History Narrative She works as a car dispatcher. EXAM: BP 124/68 (BP Site: Left Arm, BP Position: Sitting, BP Cuff Size: Large Adult) Pulse 72 Resp 12 Wt 117.9 kg (260 lb) LMP 11/19/2012 BMI 42.28 kg/m? PHYSICAL EXAM: General Appearance: Well appearing, alert, in no acute distress, well-hydrated, well nourished.. Skin: Skin color, texture, turgor normal, no suspicious rashes or lesions. Head: Normocephalic, no masses, lesions, tenderness or abnormalities. Eyes: Anicteric sclera. Pupils are equally round and reactive to light. Extraocular movements are intact. Ears: External ears normal, canals clear, Normal TMs bilaterally. Nose/Sinuses: Nares normal, septum midline, mucosa normal, no drainage or sinus tenderness. Oropharynx: Lips, mucosa, and tongue normal, teeth and gums normal, oropharynx normal. Neck: Supple, no adenopathy; thyroid absent. Lungs: Lungs clear to auscultation. No wheezing, rhonchi, rales. Heart: RRR without murmur, gallop, or rubs. No ectopy. Abdomen: Abdomen soft, non-tender. Bowel sounds normal. No masses, organomegaly. Extremities: No deformities, edema, skin discoloration, clubbing or cyanosis. Good capillary refill. . Neurologic: Gait normal. Reflexes normal and symmetric. Sensation grossly intact.. ASSESSMENT/PLAN: 1. Motion sickness, initial encounter - ICD9: 994.6, ICD10: T75.3XXA Since onset was with a URI, will go ahead and treat for a sinus infection. Also will do short trial of scopolamine -- patient aware that this can cause fatigue, so she is actually off work for the next few days, so she'll be able to ensure that she can function. Consider adding a decongestant to regimen. - SCOPOLAMINE 1 MG OVER 3 DAYS TRANSDERMAL PATCH - DOXYCYCLINE MONOHYDRATE 100 MG CAPSULE - CBC - COMP METABOLIC PANEL Will recheck in 3 weeks (after antibiotic and scopolamine). Discussed treatment plan and patient voices understanding. Patient's questions answered appropriately. Medications and potential side effects were discussed and patient voices understanding. Return to the office as scheduled or as needed for worsening/no improvement. Jennifer Fregoso APRN.SIZE CUTTER The patient indicates understanding of these issues and agrees with the plan. MARLINE Observed: 04/10/2018 Status: COMPLETED Source: [place] 8:00 AM [facility] REPOSITORY [facility] MERLE PAGAN ([id number]) 1980 F Date Time Provider Department 04/10/18 8:00 AM JENNIFER FREGOSO CNP During your visit today, we recorded the following information about you: Pulse Respiration Blood pressure Weight 72/minute 12/minute 124/68 117.9 kg Jennifer Fregoso APRN.CNP 04/10/2018 9:01 AM Signed This is a 37 year old female who presents today with: Patient presents with: motion sickness HISTORY OF PRESENT ILLNESS: Merle Pagan is a 37 year old female. Patient presents with: motion sickness Pt presents today with a new onset of motion sickness. Refers that she had a head cold about a month ago. During the headcold, she started getting car sickness. Refers that this has been progressive worsening. Getting car sick even when she is driving. 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 Getting car sick at work and off work. (not just on the back of an ambulance). Refers when they get back to the station, it takes a little bit until she is not woozy anymore. Refers that she never had a problem with car sickness before. + nausea + dizziness/wooziness. + diaphoresis. Tried dramamine, sea sickness bands, chewing gum -- nothing seems to help. No possibility of d/t Hysterectomy. REVIEW OF SYSTEMS GENERAL: No fevers/chills HEENT: Negative for frequent or significant headaches, No changes in hearing or vision. RESPIRATORY: Negative for cough, hemoptysis, wheezing, dyspnea or shortness of breath. Clear nasal drainage in the mornings. No facial pain. No ear pain. CARDIOVASCULAR: Negative for chest pain or palpitations GI: + nausea. No vomiting. 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 - First degree AV block 02/08/2011 doesn't see jigger operator, no medication - Hypocalcemia 01/12/2011 - Hypoparathyroidism (HCC) - Hypoparathyroidism (HCC) 01/12/2011 - Hypothyroidism 01/12/2011 - Menorrhagia - Nausea alone - POTS (postural orthostatic tachycardia syndrome) - Status post radioactive iodine thyroid ablation - Syncope 01/12/2011 - Thyroid cancer (HCC) 1999 papillary PAST SURGICAL HISTORY Procedure Laterality Date - EGD W/O BRSH SPECIMEN W/BX 08/14/11 - LAP CHOLECYSTECT/CHOLANGIOGRAPHY 04/08/12 failed IOC - LAP VAG HYST <=250 G RMV 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 albuterol HFA (VENTOLIN HFA) 90 mcg/actuation inhaler Inhale 2 Puffs as instructed every 6 hours as needed. Calcium-Cholecalciferol, D3, (CALCIUM 600 + D) 600-125 mg- unit ORAL Tab Take 1,200 mg by mouth once daily. Takes 2400mg daily No current facility-administered medications for this visit. FAMILY HISTORY Problem Relation Age of Onset - Thyroid Mother - Diabetes Maternal Grandfather - Hypertension Maternal Grandfather Social History Marital status: Spouse name: Fulton Years of education: 12 Number of children: 0 Occupational History Occupation Employer Comment DISPATCHER [employer]* Social History Main Topics Smoking status: Never Smoker Smokeless tobacco: Never Used Alcohol use: Yes Comment: occasional Drug use: No Sexual activity: Yes Partners with: Male control/protection: Tubal Ligation Social History Narrative She works as a car dispatcher. EXAM: BP 124/68 (BP Site: Left Arm, BP Position: Sitting, BP Cuff Size: Large Adult) Pulse 72 Resp 12 Wt 117.9 kg (260 lb) LMP 11/19/2012 BMI 42.28 kg/m? PHYSICAL EXAM: General Appearance: Well appearing, alert, in no acute distress, well-hydrated, well nourished.. Skin: Skin color, texture, turgor normal, no suspicious rashes or lesions. Head: Normocephalic, no masses, lesions, tenderness or abnormalities. Eyes: Anicteric sclera. Pupils are equally round and reactive to light. Extraocular movements are intact. Ears: External ears normal, canals clear, Normal TMs bilaterally. Nose/Sinuses: Nares normal, septum midline, mucosa normal, no drainage or sinus tenderness. Oropharynx: Lips, mucosa, and tongue normal, teeth and gums normal, oropharynx normal. Neck: Supple, no adenopathy; thyroid absent. Lungs: Lungs clear to auscultation. No wheezing, rhonchi, rales. Heart: RRR without murmur, gallop, or rubs. No ectopy. Abdomen: Abdomen soft, non-tender. Bowel sounds normal. No masses, organomegaly. Extremities: No deformities, edema, skin discoloration, clubbing or cyanosis. Good capillary refill. . Neurologic: Gait normal. Reflexes normal and symmetric. Sensation grossly intact.. ASSESSMENT/PLAN: 1. Motion sickness, initial encounter - ICD9: 994.6, ICD10: T75.3XXA Since onset was with a URI, will go ahead and treat for a sinus infection. Also will do short trial of scopolamine -- patient aware that this can cause fatigue, so she is actually off work for the next few days, so she'll be able to ensure that she can function. Consider adding a decongestant to regimen. - SCOPOLAMINE 1 MG OVER 3 DAYS TRANSDERMAL PATCH - DOXYCYCLINE MONOHYDRATE 100 MG CAPSULE - CBC - COMP METABOLIC PANEL Will recheck in 3 weeks (after antibiotic and scopolamine). Discussed treatment plan and patient voices understanding. Patient's questions answered appropriately. Medications and potential side effects were discussed and patient voices understanding. Return to the office as scheduled or as needed for worsening/no improvement. Jennifer Fregoso APRN.AMINATA The patient indicates understanding of these issues and agrees with the plan. Jennifer Fregoso APRN.CNP 04/10/2018 8:39 AM Signed 1. Start antibiotic. 2. Start the scopolamine patch. This can make you drowsy. 3. Add a decongestant to regimen. 4. Recheck in 3 weeks. Referring Provider: SELF [200] Allergies As of Date: 04/10/2018 Noted Allergy Reaction LEVAQUIN (LEVOFLOXACIN) 04/12/2012 2 - Rash 7 - Swelling Comments: lips PENICILLINS 06/13/2010 4 - Hives Comments: As a child Date Reviewed: 04/10/2018 Reviewed by: Latisha Frost Car Sales Associate - Fully Assessed Reason for Visit: motion sickness [Other] Primary Visit Diagnosis:Motion sickness, initial encounter [T75.3XXA] Order(s):CBC [SQCBC] Order #: [id number] FUTURE COMP METABOLIC PANEL [SQCMP] Order #: [id number] FUTURE scopolamine (TRANSDERM-SCOP) 1 mg over 3 daysApply 1 Patch as directed every 72 hours. Apply patch to skin behind ear 4hrs prior to travel.Disp: 10 PatchRfl: 1 doxycycline monohydrate (MONODOX) 100 mg capsuleTake 1 capsule by mouth twice daily for 10 days.Disp: 20 capsuleRfl: 0 Prescriptions as of 04/10/2018 Sig: ARMOUR THYROID 240 MG TABLET TAKE 1 TABLET DAILY CALCITRIOL 0.5 MCG CAPSULE TAKE 2 CAPSULES ONCE DAILY MUPIROCIN 2 % TOPICAL OINTMENT Apply 1 application to affect* ALBUTEROL SULFATE HFA 90 MCG/* Inhale 2 Puffs as instructed * * CALCIUM CARBONATE-VITAMIN D3 * Take 1,200 mg by mouth once d* SCOPOLAMINE 1 MG OVER 3 DAYS * Apply 1 Patch as directed morgan* DOXYCYCLINE MONOHYDRATE 100 M* Take 1 capsule by mouth twice* Problem List As Of Date 04/10/2018 Noted Resolved Post-surgical hypothyroidism [E89.0] INVALID FOR* Hypocalcemia [E83.51] INVALID FOR* Hypoparathyroidism [E20.9] INVALID FOR* Syncope [R55] INVALID FOR* Dao's lung [J67.0] INVALID FOR* Dizziness and giddiness [R42] INVALID FOR* First degree atrioventricular block [I44.0] INVALID FOR* Staring spell [ACJ8841] INVALID FOR* Palpitations [R00.2] INVALID FOR* Nausea [R11.0] INVALID FOR* Sweating [TKR4158] INVALID FOR* Papillary thyroid carcinoma (HCC) [C73] INVALID FOR* Orthostatic hypotension [I95.1] INVALID FOR* First degree AV block [I44.0] INVALID FOR* Hypothyroid [E03.9] INVALID FOR* Nausea alone [R11.0] INVALID FOR* Esophagitis, unspecified [K20.9] INVALID FOR* Acute gastritis without mention of hemorrhage [*INVALID FOR* Hyperlipidemia [E78.5] INVALID FOR* Biliary dyskinesia [K82.8] INVALID FOR* Chest pain on breathing [R07.1] INVALID FOR* Malignant neoplasm of thyroid gland [C73] INVALID FOR* Menometrorrhagia [N92.1] INVALID FOR* Adenomyosis [N80.0] INVALID FOR* Cervical stenosis (uterine cervix) [N88.2] INVALID FOR* Hematuria [R31.9] INVALID FOR* S/P thyroidectomy [E89.0] INVALID FOR* Breast abscess [N61.1] INVALID FOR* Morbid (severe) obesity due to excess calories *INVALID FOR* Other instructions from your clinician: 1. Start antibiotic. 2. Start the scopolamine patch. This can make you drowsy. 3. Add a decongestant to regimen. 4. Recheck in 3 weeks. Prescriptions ordered this encounter Disp Refills Start End SCOPOLAMINE 1 MG OVER 3 DAYS TRANSDE* 10 P* 1 04/10/2018 04/10/2018 Route: TRANSDERM. Sig: Apply 1 Patch as directed every 72 hours. Apply patch to skin behind ear 4hrs prior to travel. DOXYCYCLINE MONOHYDRATE 100 MG CAPSU* 20 c* 0 04/10/2018 04/10/2018 Route: ORAL Sig: Take 1 capsule by mouth twice daily for 10 days. SCOPOLAMINE 1 MG OVER 3 DAYS TRANSDE* 10 P* 1 04/10/2018 Route: TRANSDERM. Sig: Apply 1 Patch as directed every 72 hours. Apply patch to skin behind ear 4hrs prior to travel. DOXYCYCLINE MONOHYDRATE 100 MG CAPSU* 20 c* 0 04/10/2018 04/20/2018 Route: ORAL Sig: Take 1 capsule by mouth twice daily for 10 days. Medications Discontinued During This Encounter scopolamine (TRANSDERM-SCOP) 1 mg ov* 10 P* 1 04/10/2018 04/10/2018 Route: TRANSDERMAL Sig: Apply 1 Patch as directed every 72 hours. Apply patch to skin behind ear 4hrs prior to travel. Disc: Reason for discontinue is not on file. doxycycline monohydrate (MONODOX) 10* 20 c* 0 04/10/2018 04/10/2018 Route: ORAL Sig: Take 1 capsule by mouth twice daily for 10 days. Disc: Reason for discontinue is not on file. Disposition: Return in about 3 weeks (around 05/01/2018), or if symptoms worsen or fail to improve, for recheck. Follow-up and Disposition History Recorded Letter Text Jennifer Fregoso CNP [address] [place], [place] [address] 04/10/2018 TO WHOM IT MAY CONCERN: This is to confirm that Merle Pagan had an appointment and was seen at the [facility] in the Department of Family Medicine by Isabella Saini 04/10/2018. Please excuse from work today for medical reasons. Sincerely yours, Jennifer Fregoso CNP Encounter Status:Closed by JENNIFER FREGOSO CNP on 04/10/18 ALLERGIES ALLERGIES DATE TYPE / CODE NAME / CODE REACTION SEVERITY SOURCE 11/20/2018 Drug Penicillins/[id number] Hives Unknown Jose Allergy/416 476(RXNORM) Community 927764([facility] ED CT) Repository 11/20/2018 Drug levofloxacin/C84761 Hives Unknown [place] Allergy/416 6299(RXNORM) Community 131792([facility] ED CT) Repository 04/12/2012 DRUG LEVOFLOXACIN RASH [facility] INGREDI/[address] [place] 954784(SNOM Repository ED CT) 06/13/2010 Drug PENICILLINS HIVES [facility] Class/[address] [place] 1003(SNOMED Repository CT) ENCOUNTERS ENCOUNTERS ADMIT/DISCHARGE ACCOUNT NUMBER ADMITTING ENCOUNTER LOCATION SOURCE CLASS 11/20/2018/11/20/19 [id number] Ambulatory BMSBuilding: Jose 19 [facility] Repository 11/20/2018/11/20/19 [id number] Ambulatory [address] [place] Repository 11/13/2018 [id number] Ambulatory [facility] ding:[facility]SPEC Repository 11/13/2018/11/13/19 [id number] Ambulatory BMSBuilding: Jose 19 [facility] Repository 10/24/2018/10/24/20 [id number] Ambulatory BMSBuilding: [place] 18 [facility] Repository 10/24/2018 [id number] Ambulatory [facility] ding:US Repository 10/17/2018 [id number] [facility] 10/17/2018/10/17/20 [id number] Ambulatory BMSBuilding: Jose 18 [facility] Repository 08/15/2018/08/16/20 [id number] Ambulatory [address] Repository 06/26/2018/06/26/20 [id number] Ambulatory [address] [place] Repository 06/26/2018/06/26/20 [id number] Ambulatory [address] Repository 06/24/[id number] [facility] Repository 06/14/2018/06/17/20 [id number] Ambulatory [address] Repository 05/09/2018/05/09/20 [id number] Emergency [address] ding:ED Repository 04/11/2018/04/11/20 [id number] Ambulatory [address] Repository 04/10/2018/04/10/20 [id number] Ambulatory [address] Repository 04/10/2018/04/11/20 [id number] Ambulatory [address] Repository PAYERS PAYERS ENCOUNTER GUARANTOR PAYER SUBSCRIBER SOURCE 11/20/2018 MERLE L Primary MACARIO A Jose [id number] Insurance:ANTHEMPolic APPLEGATEDOB: [facility] JAYDEN [facility]: [id number] [id number] [place] [address]Iya: geo Date:4732-82-52IF [address] [address]XT: 11/20/2018 Secondary NOT GIVENUNK [place] Insurance:SELF PAY [facility] Number: Effective Repository Date:2018-11-13 11/13/2018 MERLE Martines Primary MACARIO A [place] [id number] Insurance:ANTHEMPolic [facility] Number: [id number] [id number] [place]ository [place] [address]Byx: geo Date:8485-28-71[address] () [address]PN: 11/13/2018 Secondary NOT GIVENUNK [place] Insurance:SELF PAY [facility] Number: Effective Repository Date:2018-11-13 11/13/2018 MERLE Martines Primary MACARIO A [place] [id number] Insurance:ANTHEMPolic APPLEGATEDOB: Community JAYDEN y Number: [id number], [id number] [place]ository [place] [address]Jci: geo Date:9143-51-30[address] () [address]WM: 11/13/2018 Secondary NOT GIVENUNK Jose Insurance:SELF PAY [facility] Number: Effective Repository Date:2018-11-12 10/24/2018 MERLE Martines Primary MACARIO A [place] [id number] Insurance:ANTHEMPolic APPLEGATEDOB: Community JAYDEN y Number: [id number], [id number] [place]ository [place] [address]Bhb: geo Date:0920-50-67[address] () [address]UZ: 10/24/2018 Secondary NOT GIVENUNK Jose Insurance:SELF PAY [facility] Number: Effective Repository Date:2018-10-18 10/24/2018 MERLE Martines Primary MACARIO A [place] [id number] Insurance:ANTHEMPolic APPLEGATEDOB: Community JAYDEN y Number: [id number], [id number] [place]ository [place] [address]Mrf: geo Date:3929-91-08ZR [address] () [address]DC: 10/24/2018 Secondary NOT GIVENUNK [place] Insurance:SELF PAY [facility] Number: Effective Repository Date:2018-10-21 10/17/2018 MERLE Martines Primary MACARIO A Jose [id number] Insurance:ANTHEMPolic APPLEGATEDOB: Community JAYDEN y Number: [id number], [id number] [place]ository [place] [address]Mnb: geo Date:1155-96-49QX [address] () [address]EK: 10/17/2018 Secondary NOT GIVENUNK [place] Insurance:SELF PAY [facility] Number: Effective Repository Date:2018-10-17 10/17/2018 MERLE Martines Primary MACARIO A Jose [id number] Insurance:ANTHEMPolic APPLEGATEDOB: Community JAYDEN y Number: [id number] [facility], [id number] [place]ository [place] [address]Pja: geo Date:9615-83-70[address]SPM[address]XR, [place] () [address]AS: 10/17/2018 Secondary NOT GIVENUNK Jose Insurance:SELF PAY [facility] Number: Effective Repository Date:2018-10-17 06/24/2018 Primary NOT [id number] [facility] Insurance:Corporate[address] Number: [facility] [id number] [address] Repository Date:Plan Name:Health 05/09/2018 MERLE Martines Primary MACARIO A [place] [id number] Insurance:ANTHEMPolic APPLEGATEDOB: Community [place] y [facility]: [id number], [id number] [place]ository [place] [id number]: geo Date:[id number] [id number] KENNY () [id number]: 05/09/2018 Secondary NOT GIVENUNK Jose Insurance:SELF PAY [facility] Number: Effective Repository Date:2018-05-09
== END ==
PROVIDERS: Family Provider Family Medicine; PCP Family Medicine; Referring Provider Nurse Practitioner; Visit Provider Nurse Practitioner
DX: E03.9 Hypothyroidism, unspecified (principal); E20.9 Hypoparathyroidism, unspecified
CPT/HCPCS: 36415; 80053; 82306; 84432; 84439; 84443; 84481; 86800

== ENCOUNTER → 2018-10-24 08:16 | Outpatient (CLI) | payer BC, SELFPAY ==
[2018-10-17 08:47] VITALS: BMI 42.5
--- NOTE | 2018-10-24 08:18 | US_ITS ---
STUDY: THYROID ULTRASOUND REASON FOR EXAM: Female, 37 years old. Acquired hypothyroidism. Thyroidectomy. TECHNIQUE: Ultrasound evaluation of the thyroid was performed with real-time and static oh-scale imaging. COMPARISON: None. FINDINGS: The thyroid gland is surgically absent. Lateral to the right thyroidectomy bed, possible lymph node. Somewhat ill-defined features. Greatest dimension approximately 2.35 x 0.59 cm. Lateral to the left thyroidectomy bed there are 2 lymph nodes, measuring approximately 1.2 x 0.3 cm, and 1.6 x 0.6 cm. Homogeneous cortices. Normal fatty hilum. Not pathologically enlarged. US/Thyroid IMPRESSION: Small lymph nodes are present lateral to the thyroidectomy beds bilaterally. Based on short axis dimensions and morphology, these are not pathologic enlarged and do not exhibit focally suspicious features. There is no apparent residual thyroid tissue in the thyroidectomy bed. There is no evidence of mass in the thyroidectomy bed. Electronically Signed: Kamari Sotelo MD at 12:11 EST Tel , Service support ,
== END ==
PROVIDERS: Family Provider Family Medicine; PCP Family Medicine; Referring Provider Nurse Practitioner; Visit Provider Nurse Practitioner
DX: E03.9 Hypothyroidism, unspecified (principal)
CPT/HCPCS: 76536

== ENCOUNTER → 2018-11-13 14:46 | Outpatient (CLI) | payer BC, SELFPAY ==
[2018-10-24 14:34] VITALS: BMI 42.5
--- NOTE | 2018-11-13 13:55 | BRBX_PTH ---
PATIENT: MERLE RENTERIA LOC: [facility] U#:[id number] AGE/SX: 44/F ROOM: RE11/13/[address]: Dr. Fermin Thomas MD : 1980 BED: DIS: SPEC #: [id number] RECD: 11/13/18 14:34 STATUS: JEANE ADRIAN #: [id number] GINA: 11/13/18 13:[address]: Fermin Thomas DEPT: SURGICAL PATHOLOGY RECD BY: Moira Vargas ENTERED: 11/13/18 15:39 SP TYPE: BREAST BX OTHR DR: Dr. Alistair Wilson MD Tissues: Left breast, NOS Procedures: Surgery Specimen Level IV HEADER OPERATION: Ultrasound-guided needle core biopsy left breast PRE-OP DIAGNOSIS: Breast lump TISSUE SUBMITTED: Left breast biopsy ISCHEMIC TIME: <1 minute FIXATION TIME: 5.5 hours MICROSCOPIC DIAGNOSIS Left breast, ultrasound-guided needle core biopsy: Fragments of benign breast tissue, no pathologic diagnosis. See comment. FRANKY:amy 11/14/18 COMMENT Correlation with clinical, radiologic findings and appropriate follow up are necessary. If there is high suspicion of malignancy, rebiopsy is suggested if clinically indicated. MICROSCOPIC DESCRIPTION Slides are reviewed. GROSS DESCRIPTION Received is one container labeled with the patient's name and not further designated. The specimen consists of multiple elongated fragments of tomlin-yellow fibroadipose tissue that in aggregate measure 1.3 x 0.5 x 0.1 cm. The entire specimen is submitted in one cassette. / FRANKY:amy 11/13/18 TC:4 CPT: 07586
== END ==
PROVIDERS: Family Provider Family Medicine; PCP Family Medicine; Referring Provider Surgery; Visit Provider Surgery
DX: N63.20 Unspecified lump in the left breast, unspecified quadrant (principal)
CPT/HCPCS: 88305

== ENCOUNTER 2019-06-24 14:59 | Observation (INO) | payer BC, SELFPAY ==
[2018-11-20 12:59] VITALS: BMI 42.5
[2019-06-24 14:59] VITALS: BP 147/90; PULSE 90; RESP 18; TEMP 36.6; O2SAT 95; BMI 43.9
--- NOTE | 2019-06-24 15:18 | EKG12_ITS ---
Test Reason : CP Blood Pressure : / mmHG Vent. Rate : 079 BPM Atrial Rate : 079 BPM P-R Int : 202 ms QRS Dur : 082 ms QT Int : 394 ms P-R-T Axes : 023 008 015 degrees QTc Int : 451 ms Normal sinus rhythm Normal ECG Confirmed by BRANDYN CABRERA ([id number]), sound editor ALANNA KINSEY ([id number]) on 06/30/2019 2:18:27 PM Referred By: Ebony Clya Confirmed By:BRANDYN CABRERA
--- NOTE | 2019-06-24 15:20 | ED.VIS.GEN ---
History of Present Illness Chief Complaint: Chest Pain Detail of Chief Complaint: Low calcium level Informant: Patient Onset: Days Current Severity: Mild Maximum Severity: Moderate Narrative: Patient has a history of hypocalcemia status post thyroidectomy and parathyroidectomy from a thyroid cancer. She takes calcium supplements. She states for the past 4 or 5 days she has had some muscle cramps and spasms consistent with when her calcium level gets too low. She has had some intermittent palpitations. She believes her last calcium level was checked 1 month ago. Past Medical History - Allergies and Home Meds Allergies/Adverse Reactions: Allergies levofloxacin [From Levaquin] Allergy (Verified 06/24/19 15:01) Hives Penicillins [PCN] Allergy (Verified 06/24/19 15:01) Hives Primary Care Physician: Alistair Wilson MD [Primary Care Provider] - Prior records reviewed: Yes Past Medical History: - - Reviewed Surgical History: - - Thyroidectomy, parathyroidectomy Smoking Status: Former smoker - Family History Maternal Family History: Family History (Last Reviewed 11/20/18 @ 12:58 by Arely Freire) Unknown Hypertension Heart disease Arthritis Grandmother Arthritis High cholesterol Thyroid disorder Grandfather Arthritis Diabetes Heart disease Hypertension Kidney disease Uncle Colon cancer Family History: Reports: - - Rheumatoid arthritis Review of Systems General: Denies: Chills, Fever Eyes: Denies: Visual changes - bilaterally ENT: Denies: Bilateral ear pain Cardiovascular: Reports: Chest pain, Palpitations Respiratory: Denies: Dyspnea, Cough Gastrointestinal: Denies: Abdominal pain, Nausea, Vomiting Genitourinary: Denies: Dysuria Musculoskeletal: Reports: Myalgias Skin: Denies: Rash Neurological: Denies: Headache Endocrine: Denies: Polyuria, Polydipsia Hematologic: Denies: Easy bruising Allergy: Denies: Uticaria Physical Exam Vital Signs/Narrative: Vital Signs Temp Pulse Resp BP Pulse Ox 06/24/19 14:59 97.8 F 90 18 147/90 H 95 Inital Vital Signs reviewed: Yes General: Well nourished, Well developed Head: Normocephalic Eyes: Perrl, EOMI ENT: Moist mucous membranes Cardiovascular: Regular rate, Regular rhythm Respiratory: No distress, CTA bilaterally Abdomen: Soft, Nontender Extremities: Nontender, No edema Skin: Normal color, No rash Neurological: Alert, Oriented x3, Normal Strength, Normal Sensation Psychological: Normal affect Diagnostic/Tx/Re-eval Impressions Chest X-Ray 06/24/19 15:21 IMPRESSION: Normal x-ray examination of the chest. No acute intrathoracic process. Bilateral calcific tendinopathy of the shoulder joints. Electronically Signed: Satish Meek MD at 15:42 EDT Tel [phone], Service support , 06/24/19 15:21 Chest 1 View (Portable) [RAD] Stat Laboratory Results 06/24/19 06/24/19 06/24/19 15:32 15:32 15:32 WBC 11.3 H RBC 4.42 Hgb 13.5 Hct 39.6 MCV 89.6 MCH 30.5 MCHC 34.1 RDW Std Deviation 41.4 RDW Coeff of Amado 12.6 Plt Count 286 MPV 9.9 Immature Gran % (Auto) 0.400 Neut % (Auto) 69.0 Lymph % (Auto) 20.0 [place] % (Auto) 6.3 Eos % (Auto) 3.8 Baso % (Auto) 0.5 Absolute Neuts (auto) 7.8 H Absolute Lymphs (auto) 2.26 Nucleated RBC % 0 Sodium 139 Potassium 3.5 Chloride 107 Carbon Dioxide 27.0 Anion Gap 5 BUN 14 Creatinine 0.84 Estim Creat Clear Calc 78.41 Est GFR (MDRD) Af Amer 97 Est GFR (MDRD) Non-Af 80 BUN/Creatinine Ratio 16.6 Glucose 93 Calcium 7.5 L Troponin I < 0.015 Albumin 3.4 TSH 14.70 H - EKG Initial EKG Interpretation: Sinus Rhythm - Sinus at 79 with no acute ischemia. - Medical Decision Making Patient has a calcium level of 7.5. I was able to review prior labs in clinisync and on May 29 her calcium was 9.2. Her TSH today is also elevated and was 3.280 on May 29. Patient has been ordered IV calcium gluconate. We will recommend hospitalization overnight for calcium replacement and repeat labs. Hospitalist on page at this time. ED Disposition - Plan for ED Patient: Disposition: Acute Care [facility] Diagnosis: Hypocalcemia Referrals: Alistair Wilson MD [Primary Care Provider] -
--- NOTE | 2019-06-24 15:21 | RAD_ITS ---
STUDY: X-RAY CHEST REASON FOR EXAM: Female, 38 years old. Hypoglycemia TECHNIQUE: Single AP portable view of the chest. COMPARISON: 05/09/2018. FINDINGS: The lungs are clear and expanded. There is no demonstrated pleural abnormality. Normal size heart. Normal mediastinum and amol. Normal visualized pulmonary arteries. Normal visualized aortic arch and descending thoracic aorta. There are diffuse degenerative changes of the visualized thoracic spine. Bilateral calcific tendinopathy of the shoulder joints. There is no demonstrated abnormality of the visualized soft tissue structures of the upper abdomen. RAD/Chest 1 View (Portable) IMPRESSION: Normal x-ray examination of the chest. No acute intrathoracic process. Bilateral calcific tendinopathy of the shoulder joints. Electronically Signed: Satish Meek MD at 15:42 EDT Tel [phone], Service support ,
[2019-06-24 15:54] LABS: Absolute Lymphocyte Count 2.26 X10^3/uL (0.83-4.51); Absolute Neutrophil Count 7.8 X10^3/uL (2.0-7.7); Basophil# 0.06 X10^3/uL; Basophil% 0.5 % (0-1); Eosinophil# 0.43 X10^3/uL; Eosinophils% 3.8 % (0-5); Hematocrit 39.6 % (37-47); Hemoglobin 13.5 g/dL (12.0-15.0); Lymphocyte # 2.26 X10^3/ul (4.0); Mean Corp Hgb Conc 34.1 g/dL (32-36); Mean Corpuscular Hgb 30.5 pg (27.0-32.0); Mean Corpuscular Volume 89.6 fL (81-99); Mean Platelet Vol. 9.9 fl (6.2-12.0); Monocyte# 0.71 X10^3/uL; Monocyte% 6.3 % (0-10); NRBC Flagged by Analyzer 0 % (0-5); Neutrophil # 7.81 X10^3/uL (2.7-7.7); Platelet Count 286 K/mm3 (150-450); RBC Distribution Width CV 12.6 % (11.6-14.6); RBC Distribution Width SD 41.4 fl (35.1-43.9); Red Blood Count 4.42 M/mm3 (4.2-5.4); White Blood Count 11.3 K/mm3 (4.4-11.0)
[2019-06-24] MEDS: 0.9% Normal Saline 1,000 ML 15 ML IV (16:11)
[2019-06-24 16:13] LABS: Anion Gap 5 (5-15); BUN 14 mg/dL (7-18); BUN/Creat Ratio 16.6 RATIO (10-20); Calcium,Total 7.5 mg/dL (8.5-10.1); Chloride 107 mmol/L (98-107); Creatinine, Serum 0.84 mg/dL (0.55-1.02); EST Glomerular Filtration Rate 80 mL/min (>60); Est Glom Filt Rate - Afr Amer 97 mL/min (>60); Estimated Creatinine Clearance 78.41 ml/min; Glucose 93 mg/dL (74-106); Potassium 3.5 mmol/L (3.5-5.1); Sodium Level 139 mmol/L (136-145)
[2019-06-24 17:09] LABS: Albumin, Serum 3.4 g/dL (3.2-5.0)
--- NOTE | 2019-06-24 17:33 | NURSING ---
DR DAVID FOR DR WEATHERS
--- NOTE | 2019-06-24 17:34 | NURSING ---
PCU OBS PAINTSIL HYPOCALCEMIA, CP
--- NOTE | 2019-06-24 18:07 | PCM.HP.STD ---
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 (3) Hypoparathyroidism Status: Chronic Qualifiers: Hypoparathyroidism type: unspecified Qualified Code(s): E20.9 - Hypoparathyroidism, unspecified (4) Asthma Status: Chronic Qualifiers: Asthma severity: mild Asthma persistence: intermittent Asthma complication type: uncomplicated Qualified Code(s): J45.20 - Mild intermittent asthma, uncomplicated (5) Seasonal allergies Status: Chronic History of Present Illness Date of Admission: 06/24/19 Chief Complaint: Tingling and muscle spasms - 1 day The patient is a 38 year old F with past medical history of thyroid cancer diagnosed at the age of 18, status post thyroidectomy/parathyroidectomy, used to follow-up with IESHA Alcala NP for hypocalcemia and hypothyroidism, who comes in with tingling of her extremities as well as her perioral region and muscle spasms and generalized weakness in her extremities. Patient has recently been following up with an cooker soda with [facility]. She states that recent blood work was stable. She usually gets hypocalcemic when she is well. She however has been feeling well and has had no recent illness or changes in her medications.. She noticed that she has spasms in her extremities as well as tingling in her hands and feet and in her perioral region. This usually presents with when she has low calcium levels. Vitals in the ED was able to 97.8F, heart rate 90, blood pressure 147/90, respiratory 18 SPO2 is 95% on room air. BC count 11.3, Hb 13.5, platelet count is 286. BMP is unremarkable, her corrected calcium 7.98. Admitting chest x-ray shows no acute intrathoracic process, bilateral calcific tendinopathy of the shoulder joint. Past Medical History Past Medical History (Chronic Problems): Chronic Problems (Last Reviewed 11/20/18 @ 12:58 by Arely Freire) Asthma (Chronic) Seasonal allergies (Chronic) Hypothyroidism associated with surgical procedure (Chronic) Hypoparathyroidism (Chronic) Acquired hypothyroidism (Chronic) Medical History: Medical History (Last Reviewed 11/20/18 @ 12:58 by Arely Freire) Asthma J45.909 H/O total thyroidectomy E89.0 Hypoparathyroidism E20.9 Low calcium levels E83.51 Seasonal allergies J30.2 Thyroid cancer C73 Thyroid disease E07.9 Chronic headaches R51 Allergies levofloxacin [From Levaquin] Allergy (Verified 06/24/19 15:01) Hives Penicillins [PCN] Allergy (Verified 06/24/19 15:01) Hives Home Medications: Ambulatory Orders Medication Instructions Recorded thyroid (pork) 240 mg tablet 240 mg PO DAILY #90 tab 10/17/18 calcitriol 0.25 mcg capsule 0.5 mcg PO BID cap 10/24/18 Calcium Carbonate [Calcium] 1,800 mg PO DAILY 06/24/19 Surgical History: Surgical History (Last Reviewed 11/20/18 @ 12:58 by Arely Freire) H/O: hysterectomy Z90.710 History of tubal ligation Z98.51 Hx of cholecystectomy Z90.49 NEWELL removal of lipoma Surgical History: cholecystectomy, hysterectomy, - - Thyroidectomy, parathyroidectomy, status post tubal ligation Psychiatric History: No pertinent psych hx [employer]ER History: No pertinent [employer]ER history Lives: Spouse/ Significant Other Smoking Status: Never smoker Tobacco Use: Non-smoker Alcohol: None Drugs: None - *Family History Maternal Family History: Family History (Last Reviewed 11/20/18 @ 12:58 by Arely Freire) Unknown Hypertension Heart disease Arthritis Grandmother Arthritis High cholesterol Thyroid disorder Grandfather Arthritis Diabetes Heart disease Hypertension Kidney disease Uncle Colon cancer History Items: Renal Disease, - - Rheumatoid arthritis Paternal Family History: Family History (Last Reviewed 11/20/18 @ 12:58 by Arely Freire) Unknown Hypertension Heart disease Arthritis Grandmother Arthritis High cholesterol Thyroid disorder Grandfather Arthritis Diabetes Heart disease Hypertension Kidney disease Uncle Colon cancer History Items: No pertinent history Review of Systems Constitutional: Reports: Malaise, Weakness, Fatigue. Denies: Chills, Fever, Weight Change Eyes: Denies: Blurred vision, Cataracts, Conjunctivae Inflammation, Pain, Redness, Vision Change HEENT: Denies: Difficulty Hearing, Difficulty Swallowing, Head Aches, Hearing Changes, Sinus Congestion, Sinus Drainage, Sore Throat Cardiovascular: Denies: Chest Pain, Claudication, Orthopnea, Palpitations, Paroxysmal Noc. Dyspnea Respiratory: Denies: Cough, Hemoptysis, Shortness of breath at rest, Shortness of breath upon exertion, Sputum production Gastrointestinal: Denies: Abdominal Pain, Hematemesis, Hematochezia, Nausea, Vomiting Genitourinary: Denies: Dysuria Musculoskeletal: Denies: Joint Pain, Joint stiffness, Joint swelling, Joint Tenderness Skin: Denies: Rash, Wounds Neurological: Reports: Numbness, Tingling, - - SEE HPI. Denies: Focal weakness Psychiatric: Denies: Anxiety, Depression, Homicidal Ideations, Suicidal Ideations Hematologic/ Lymphatic: Denies: Easy Bruising, Easy Bleeding VTE Information - Inpt Only VTE Present on Admission: No VTE Pharm Prophylaxis ordered?: Yes Patient Problems: Active and Suspected Problems (Last Reviewed 11/20/18 @ 12:58 by Arely Freire) Hypocalcemia (Acute) - Physical Exam General: Alert, Oriented x3, Cooperative, No apparent distress, - - morbidly obese HEENT: Atraumatic, PERRLA, EOMI, Normocephalic Oral: Moist Mucosa Neck: Supple Lungs: Clear to auscultation, Normal air movement Cardiovascular: Regular rate, Regular Rhythm, Normal S1, Normal S2, No murmurs Abdomen: Bowel Sounds Present, Soft, Non Tender, Non-Distended, No Hepato-splenomegaly Extremities: No edema Skin: No rashes, No breakdown Musculoskeletal: No Tenderness to Palpation of Joints or Extremities Lymphatic: No Cervical, Supraclavicular, or Inguinal Adenopathy Neurological: Cranial nerves II-XII grossly intact, Neuro grossly intact Psych/Mental Status: Normal Affect, Appropriate Vital Signs Temp Pulse Resp BP Pulse Ox 97.8 F 90 18 147/90 H 95 06/24/19 14:59 06/24/19 14:59 06/24/19 14:59 06/24/19 14:59 06/24/19 14:59 Oxygen Delivery Method Room Air Weight: 116 kg Body Mass Index (BMI) 43.9 Laboratory Tests Past 24 Hrs 06/24/19 06/24/19 06/24/19 15:32 15:32 15:32 WBC 11.3 H RBC 4.42 Hgb 13.5 Hct 39.6 MCV 89.6 MCH 30.5 MCHC 34.1 RDW Std Deviation 41.4 RDW Coeff of Amado 12.6 Plt Count 286 MPV 9.9 Immature Gran % (Auto) 0.400 Neut % (Auto) 69.0 Lymph % (Auto) 20.0 [place] % (Auto) 6.3 Eos % (Auto) 3.8 Baso % (Auto) 0.5 Absolute Neuts (auto) 7.8 H Absolute Lymphs (auto) 2.26 Nucleated RBC % 0 Sodium 139 Potassium 3.5 Chloride 107 Carbon Dioxide 27.0 Anion Gap 5 BUN 14 Creatinine 0.84 Estim Creat Clear Calc 78.41 Est GFR (MDRD) Af Amer 97 Est GFR (MDRD) Non-Af 80 BUN/Creatinine Ratio 16.6 Glucose 93 Calcium 7.5 L Ionized Calcium Pending Troponin I < 0.015 Albumin TSH 14.70 H 06/24/19 15:32 WBC RBC Hgb Hct MCV MCH MCHC RDW Std Deviation RDW Coeff of Amado Plt Count MPV Immature Gran % (Auto) Neut % (Auto) Lymph % (Auto) [place] % (Auto) Eos % (Auto) Baso % (Auto) Absolute Neuts (auto) Absolute Lymphs (auto) Nucleated RBC % Sodium Potassium Chloride Carbon Dioxide Anion Gap BUN Creatinine Estim Creat Clear Calc Est GFR (MDRD) Af Amer Est GFR (MDRD) Non-Af BUN/Creatinine Ratio Glucose Calcium Ionized Calcium Troponin I Albumin 3.4 TSH Assessment/Plan All Active Problems (Last Reviewed 11/20/18 @ 12:58 by Arely Freire) Hypocalcemia (Acute) 38 year old F with past medical history of thyroid cancer diagnosed at the age of 18, status post thyroidectomy/parathyroidectomy who comes in with tingling of her extremities as well as her perioral region and muscle spasms and generalized weakness in her extremities. 1. Acute symptomatic hypocalcemia in a patient status post parathyroidectomy Corrected calcium 7.98, ionized calcium is pending Plan: Admit to PCU, monitor on telemetry, continue with IV gluconate, check serum magnesium, vitamin D, PTH level Continue on home calcitriol, vitamin D, repeat blood work in am 2. Hypothyroidism status post thyroidectomy, history of thyroid cancer, On armour thyroid, TSH is 14.7, Will check free T4, free T3, continue with home thyroid medication 3. Morbid obesity, BMI 43.9, diet and exercise recommended 4. DVT PPx- early am Code Visit OBSV E&M: [id number] Initial observation care L3
[2019-06-24 18:15] VITALS: BP 127/95; PULSE 69; PULSE 73; RESP 12; O2SAT 98
[2019-06-24 18:55] VITALS: BP 123/87; PULSE 71; RESP 14; TEMP 36.7; O2SAT 98
[2019-06-24 18:56] VITALS: BMI 43.2
[2019-06-24 19:00] VITALS: PULSE 72
[2019-06-24 19:01] VITALS: BMI 43.3
[2019-06-24 19:02] VITALS: PULSE 74
[2019-06-24 19:05] LABS: Magnesium 2.2 mg/dL (1.6-2.6)
[2019-06-24] MEDS: 0.9% Normal Saline 1,000 ML 75 ML IV (19:40)
[2019-06-24 20:05] LABS: Free T3 2.1 pg/mL (2.18-3.98); T4 Free Direct 0.61 ng/dL (0.76-1.46)
[2019-06-24 22:40] VITALS: BP 120/73; PULSE 74; RESP 18; TEMP 36.4; O2SAT 95
[2019-06-24] MEDS: Calcitriol 0.25 MCG Capsule 0.5 MCG PO (22:42)
[2019-06-25 03:05] VITALS: PULSE 67
[2019-06-25 04:34] VITALS: BP 114/78; PULSE 65; RESP 16; TEMP 36.4; O2SAT 93
[2019-06-25 05:17] LABS: Absolute Lymphocyte Count 2.89 X10^3/uL (0.83-4.51); Absolute Neutrophil Count 6.1 X10^3/uL (2.0-7.7); Basophil# 0.05 X10^3/uL; Basophil% 0.5 % (0-1); Eosinophil# 0.58 X10^3/uL; Eosinophils% 5.6 % (0-5); Hematocrit 39.8 % (37-47); Hemoglobin 13.4 g/dL (12.0-15.0); Lymphocyte # 2.89 X10^3/ul (4.0); Lymphocyte % 27.8 % (19-41); Mean Corp Hgb Conc 33.7 g/dL (32-36); Mean Corpuscular Hgb 30.6 pg (27.0-32.0); Mean Corpuscular Volume 90.9 fL (81-99); Mean Platelet Vol. 9.8 fl (6.2-12.0); Monocyte# 0.75 X10^3/uL; Monocyte% 7.2 % (0-10); NRBC Flagged by Analyzer 0 % (0-5); Neutrophil # 6.06 X10^3/uL (2.7-7.7); Neutrophil % 58.4 % (47-70); Platelet Count 249 K/mm3 (150-450); RBC Distribution Width CV 12.5 % (11.6-14.6); RBC Distribution Width SD 41.1 fl (35.1-43.9); Red Blood Count 4.38 M/mm3 (4.2-5.4); White Blood Count 10.4 K/mm3 (4.4-11.0)
[2019-06-25 05:33] LABS: ALB/GLOB Ratio 0.8 RATIO (0.9-2.4); AST(SGOT) 12 U/L (15-37); Alanine Aminotransfer ALT/SGPT 19 U/L (13-56); Albumin, Serum 3.1 g/dL (3.2-5.0); Alkaline Phosphatase 38 U/L (45-117); Anion Gap 5 (5-15); BUN 10 mg/dL (7-18); BUN/Creat Ratio 12.7 RATIO (10-20); Calcium,Total 7.2 mg/dL (8.5-10.1); Chloride 107 mmol/L (98-107); Creatinine, Serum 0.79 mg/dL (0.55-1.02); EST Glomerular Filtration Rate 87 mL/min (>60); Est Glom Filt Rate - Afr Amer 105 mL/min (>60); Estimated Creatinine Clearance 83.38 ml/min; Globulin 3.8 g/dL (2.2-4.2); Glucose 93 mg/dL (74-106); Potassium 3.7 mmol/L (3.5-5.1); Protein, Total 6.9 g/dL (6.4-8.2); Sodium Level 141 mmol/L (136-145)
[2019-06-25] MEDS: Thyroid 60 MG Tablet 240 MG PO (06:17)
[2019-06-25] MEDS: 0.9% NaCl IVPB Med Flush (250 mL) 15 ML IV (06:36)
[2019-06-25 07:14] VITALS: PULSE 65
[2019-06-25] MEDS: Calcium Carbonate 500 MG Tablet 1500 MG PO (08:37)
[2019-06-25] MEDS: Calcitriol 0.25 MCG Capsule 0.5 MCG PO (08:37)
[2019-06-25] MEDS: 0.9% NaCl Peripheral Flush Adult/Peds IV (08:53)
--- NOTE | 2019-06-25 10:28 | DCINST_ITS ---
- Discharge Diagnoses Current Active Problems: Current Active and Chronic Problems (Last Reviewed 11/20/18 @ 12:58 by Arely Freire) Hypocalcemia (Acute) Asthma (Chronic) Seasonal allergies (Chronic) You will use the following diet at home:: Regular Your food should be the consistency of: Regular Your liquids should be the consistency of: Regular/Thin Discharge Activity: Return to Normal Activity Call your doctor if you observe: Fever of 101 or Higher, Shortness of breath, Dizziness, Fainting spells, Swelling in the ankles, Chest pain, Increased palpitations (irregular heartbeat) Allergies/Adverse Reactions: Allergies levofloxacin [From Levaquin] Allergy (Verified 06/24/19 15:01) Hives Penicillins [PCN] Allergy (Verified 06/24/19 15:01) Hives Medications to take at Discharge thyroid (pork) 240 mg tablet 240 mg PO DAILY #90 tab 10/17/18 calcitriol 0.25 mcg capsule 0.5 mcg PO BID cap 10/24/18 Calcium Carbonate [Calcium] 3,600 mg PO DAILY #0 06/25/19 Primary Care Physician: Alistair Wilson MD [Primary Care Provider] - Please follow up with your Primary Care Physician in: 3-5 days Test Results: Test results from this visit will be discussed in further detail at your follow- up appointment, if applicable. Please Follow Up With: Endocrinology
--- NOTE | 2019-06-25 10:35 | PCM.DC.SUM ---
Discharge Date and Diagnosis - Problem List Patient Problems: Active and Suspected Problems (Last Reviewed 11/20/18 @ 12:58 by Arely Freire) Hypocalcemia (Acute) Date of Admission: 06/24/19 Date of Discharge: 06/25/19 - Primary Discharge Diagnosis Active and Suspected Problems (Last Reviewed 11/20/18 @ 12:58 by Arely Freire) Hypocalcemia (Acute) - Secondary Discharge Diagnosis Chronic Problems (Last Reviewed 11/20/18 @ 12:58 by Arely Freire) Asthma (Chronic) Seasonal allergies (Chronic) Hypothyroidism associated with surgical procedure (Chronic) Hypoparathyroidism (Chronic) Acquired hypothyroidism (Chronic) Hospital Course and Treatment Imaging Results: CXR: IMPRESSION: Normal x-ray examination of the chest. No acute intrathoracic process. Bilateral calcific tendinopathy of the shoulder joints. Consults: None Operations: None Procedures: None Summary of Care Provided: Per HPI: The patient is a 38 year old F with past medical history of thyroid cancer diagnosed at the age of 18, status post thyroidectomy/parathyroidectomy, used to follow-up with IESHA Alcala NP for hypocalcemia and hypothyroidism, who comes in with tingling of her extremities as well as her perioral region and muscle spasms and generalized weakness in her extremities. Patient has recently been following up with an striper machine with [facility]. She states that recent blood work was stable. She usually gets hypocalcemic when she is well. She however has been feeling well and has had no recent illness or changes in her medications.. She noticed that she has spasms in her extremities as well as tingling in her hands and feet and in her perioral region. This usually presents with when she has low calcium levels. Vitals in the ED was able to 97.8F, heart rate 90, blood pressure 147/90, respiratory 18 SPO2 is 95% on room air. BC count 11.3, Hb 13.5, platelet count is 286. BMP is unremarkable, her corrected calcium 7.98. Admitting chest x-ray shows no acute intrathoracic process, bilateral calcific tendinopathy of the shoulder joint. Hospital Course: 1. Acute symptomatic [id number] female who is status post thyroidectomy for cancer and at that time they remove parathyroid as well on accident and then threw it away thing she had 3 others however it appears that that was the only functional parathyroid she had. Since then her PTH has been 0. She has been seen by endocrinology and has been placed on calcium supplements as well as vit D. She states that she feels back to baseline now and does not have any perioral tingling or muscle spasms. I discussed with her that she should increase her tums intake from 3 tabs a day to 6 and she has follow-up lab work in july by her striper machine. If she has any recurrence of symptoms she is to present back to the hospital. There is a vit D level and an ionized calcium level pending, however these take several days to return and she feels much better and would like to go home and not wait for the results. 2. Hypothyroidism status post thyroidectomy-she had her thyroidectomy secondary to thyroid cancer 1998. She states that she has been on multiple different thyroid strategies and none of them seem to work until she was started on [place] Thyroid. 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 Now her TSH is 14.7 with a low T4 and T3. She states that she was told that the reason why she has difficulty with her thyroid is because she does not convert T4-T3 in the peripheral system appropriately. She is unsure as to when Gustavo will get the appropriate [place] Thyroid, I did discuss potentially taking a prescription to a different pharmacy however there appears to be a national shortage. In the meantime she can continue with the [place] Thyroid that she had in December, she is going to be due for repeat labs in July with follow-up to her striper machine after the lab work. At that time adjustments can be made. I also advised her that there will be an striper machine arriving here in [place] sometime in August if she would like to transition care somewhere closer to home. 3. Morbid obesity-BMI of 43.9, she was counseled on diet and exercise as well as other lifestyle modification Patient Problems: Active and Suspected Problems (Last Reviewed 11/20/18 @ 12:58 by Arely Freire) Hypocalcemia (Acute) - Physical Exam General: Alert, Oriented x3, Cooperative, No apparent distress HEENT: Atraumatic, PERRLA, EOMI, Normocephalic Oral: Moist Mucosa Neck: Supple, No JVD Lungs: Clear to auscultation, Normal air movement, No rhonchi, No wheeze, No rales Cardiovascular: Regular rate, Regular Rhythm, Normal S1, Normal S2, No murmurs Abdomen: Soft, Non Tender, Non-Distended, No Hepato-splenomegaly, Obese Extremities: No edema, Capillary Refill Less than 3 Seconds Skin: No rashes, No breakdown Neurological: Neuro grossly intact, Sensory exam intact to light touch and pain Psych/Mental Status: Normal Affect, Appropriate Vital Signs Temp Pulse Resp BP Pulse Ox 97.6 F L 65 16 114/78 93 06/25/19 04:34 06/25/19 07:14 06/25/19 04:34 06/25/19 04:34 06/25/19 04:34 Oxygen Delivery Method Room Air Weight: 254 lb 6.4 oz Body Mass Index (BMI) 43.2 Intake and Output for Last 24 Hours 06/23/19 06/24/19 06/25/19 23:59 23:59 23:59 Intake Total 466.00 / 466.00 826.25 / 826.25 Balance 466.00 / 466.00 826.25 / 826.25 Laboratory Tests Past 24 Hrs 06/24/19 06/24/19 06/24/19 15:32 15:32 15:32 WBC 11.3 H RBC 4.42 Hgb 13.5 Hct 39.6 MCV 89.6 MCH 30.5 MCHC 34.1 RDW Std Deviation 41.4 RDW Coeff of Amado 12.6 Plt Count 286 MPV 9.9 Immature Gran % (Auto) 0.400 Neut % (Auto) 69.0 Lymph % (Auto) 20.0 [place] % (Auto) 6.3 Eos % (Auto) 3.8 Baso % (Auto) 0.5 Absolute Neuts (auto) 7.8 H Absolute Lymphs (auto) 2.26 Nucleated RBC % 0 Sodium 139 Potassium 3.5 Chloride 107 Carbon Dioxide 27.0 Anion Gap 5 BUN 14 Creatinine 0.84 Estim Creat Clear Calc 78.41 Est GFR (MDRD) Af Amer 97 Est GFR (MDRD) Non-Af 80 BUN/Creatinine Ratio 16.6 Glucose 93 Calcium 7.5 L Ionized Calcium Pending Magnesium Total Bilirubin AST ALT Alkaline Phosphatase Troponin I < 0.015 Total Protein Albumin Globulin Albumin/Globulin Ratio Vit D 1,25-Dihydroxy TSH 14.70 H Free T4 Free T3 pg/dL PTH Intact 06/24/19 06/24/19 06/24/19 15:32 15:32 15:32 WBC RBC Hgb Hct MCV MCH MCHC RDW Std Deviation RDW Coeff of [place] Plt Count MPV Immature Gran % (Auto) Neut % (Auto) Lymph % (Auto) [place] % (Auto) Eos % (Auto) Baso % (Auto) Absolute Neuts (auto) Absolute Lymphs (auto) Nucleated RBC % Sodium Potassium Chloride Carbon Dioxide Anion Gap BUN Creatinine Estim Creat Clear Calc Est GFR (MDRD) Af Amer Est GFR (MDRD) Non-Af BUN/Creatinine Ratio Glucose Calcium Ionized Calcium Magnesium Total Bilirubin AST ALT Alkaline Phosphatase Troponin I Total Protein Albumin 3.4 Globulin Albumin/Globulin Ratio Vit D 1,25-Dihydroxy TSH Free T4 0.61 L Free T3 pg/dL 2.1 L PTH Intact 0.0 L 06/24/19 06/24/19 06/25/19 15:32 15:32 05:00 WBC 10.4 RBC 4.38 Hgb 13.4 Hct 39.8 MCV 90.9 MCH 30.6 MCHC 33.7 RDW Std Deviation 41.1 RDW Coeff of [place] 12.5 Plt Count 249 MPV 9.8 Immature Gran % (Auto) 0.500 Neut % (Auto) 58.4 Lymph % (Auto) 27.8 [place] % (Auto) 7.2 Eos % (Auto) 5.6 H Baso % (Auto) 0.5 Absolute Neuts (auto) 6.1 Absolute Lymphs (auto) 2.89 Nucleated RBC % 0 Sodium Potassium Chloride Carbon Dioxide Anion Gap BUN Creatinine Estim Creat Clear Calc Est GFR (MDRD) Af Amer Est GFR (MDRD) Non-Af BUN/Creatinine Ratio Glucose Calcium Ionized Calcium Magnesium 2.2 Total Bilirubin AST ALT Alkaline Phosphatase Troponin I Total Protein Albumin Globulin Albumin/Globulin Ratio Vit D 1,25-Dihydroxy Pending TSH Free T4 Free T3 pg/dL PTH Intact 06/25/19 05:00 WBC RBC Hgb Hct MCV MCH MCHC RDW Std Deviation RDW Coeff of [place] Plt Count MPV Immature Gran % (Auto) Neut % (Auto) Lymph % (Auto) [place] % (Auto) Eos % (Auto) Baso % (Auto) Absolute Neuts (auto) Absolute Lymphs (auto) Nucleated RBC % Sodium 141 Potassium 3.7 Chloride 107 Carbon Dioxide 29.0 Anion Gap 5 BUN 10 Creatinine 0.79 Estim Creat Clear Calc 83.38 Est GFR (MDRD) Af Amer 105 Est GFR (MDRD) Non-Af 87 BUN/Creatinine Ratio 12.7 Glucose 93 Calcium 7.2 L Ionized Calcium Magnesium Total Bilirubin 0.90 AST 12 L ALT 19 Alkaline Phosphatase 38 L Troponin I Total Protein 6.9 Albumin 3.1 L Globulin 3.8 Albumin/Globulin Ratio 0.8 L Vit D 1,25-Dihydroxy TSH Free T4 Free T3 pg/dL PTH Intact Discharge Activity: Return to Normal Activity Call your doctor if you observe: Fever of 101 or Higher, Shortness of breath, Dizziness, Fainting spells, Swelling in the ankles, Chest pain, Increased palpitations (irregular heartbeat) Home Medications: Medications to take at Discharge thyroid (pork) 240 mg tablet 240 mg PO DAILY #90 tab 10/17/18 calcitriol 0.25 mcg capsule 0.5 mcg PO BID cap 10/24/18 Calcium Carbonate [Calcium] 3,600 mg PO DAILY #0 06/25/19 Primary Care Physician: Alistair Wilson MD [Primary Care Provider] - Please follow up with your Primary Care Physician in: 3-5 days Please Follow Up With: Endocrinology Disposition: Home Minutes spent on discharge:: 35 Patient Condition:: Good Medical Necessity - Tobacco Use Smoking Status: Never smoker Tobacco Use: Non-smoker Meaningful Use Info Meaningful Use Diagnoses (Choose all that apply): None applicable Code Visit OBSV E&M: 75303 Observation care discharge
[2019-06-25 10:52] VITALS: BP 129/94; PULSE 72; RESP 12; TEMP 36.5; O2SAT 97
== END 2019-06-25 10:29 | disposition home or self-care (01) ==
LOC: ED 17:29 → PCU 17:39
PROVIDERS: Admitting Provider Internal Medicine; Emergency Provider Emergency Medicine; Family Provider Family Medicine; PCP Family Medicine; Referring Provider Internal Medicine; Visit Provider Family Medicine
DX: E83.51 Hypocalcemia (principal); E89.0 Postprocedural hypothyroidism; E20.9 Hypoparathyroidism, unspecified; J45.909 Unspecified asthma, uncomplicated; E66.9 Obesity, unspecified; Z68.41 Body mass index [BMI] 40.0-44.9, adult; Z79.899 Other long term (current) drug therapy; Z85.850 Personal history of malignant neoplasm of thyroid; Z87.891 Personal history of nicotine dependence
CPT/HCPCS: 36415; 71045; 80048; 80053; 82040; 82330; 82652; 83735; 83970; 84439; 84443; 84481; 84484; 85025; 93005; 96361; 96365; 96366; 99218; 99285; J7030; J7050; A4216; G0378; J0610